=== PATIENT | male | born 1965 | race Caucasian/White ===

== ENCOUNTER 2018-11-12 09:12 | Emergency (ER) | payer MEDICAID ==
[2018-11-12 10:35] LABS: BILIRUBIN,URINE NEGATIVE (NEGATIVE); GLUCOSE, URINE (UA) NEGATIVE (NEGATIVE); KETONES,URINE (UA) TRACE mg/dL (NEGATIVE); LEUKOCYTE ESTERASE, URINE TRACE (NEGATIVE); NITRITE,URINE NEGATIVE (NEGATIVE); OCCULT BLOOD,URINE NEGATIVE (NEGATIVE); PH,URINE 5.5 PH (5.0-7.5); PROTEIN,URINE NEGATIVE (NEGATIVE); UROBILINOGEN,URINE 0.2 (NORMAL) E.U./dL (NORMAL)
[2018-11-12 10:58] LABS: CLARITY,URINE CLEAR (CLEAR)
[2018-11-12 11:01] LABS: BACTERIA,URINE Rare /HPF (None Seen); RBC,URINE None Seen /HPF (0-5); SQUAMOUS EPITHELIAL CELL,UR RARE Squamous (<= Few)
[2018-11-12 11:59] VITALS: BP 142/78
[2018-11-12] MEDS ORDERED: CIPROFLOXACIN 250 MG TABLET PO STA (11:59)
[2018-11-12] MEDS ORDERED: PHENAZOPYRIDINE 100 MG TABLET PO STA (11:59)
--- NOTE | 2018-11-12 12:05 | ED Physician Documentation ---
PD HPI FEMALE - Stated complaint Stated Complaint: MALE - Chief complaint Chief Complaint: Abd Pain - History obtained from History obtained from: Patient - History of Present Illness Timing - duration: Days (3) Timing - details: Still present Associated symptoms: Dysuria, Urinary frequency Similar symptoms before: Has not had sx before - Additional information Additional information: The patient is a 53-year-old male who presents with dysuria and urgency of urination. He reports mild symptoms intermittently over the past month, but worse during the past 3 days. He reports lower abdominal pain, radiating to his left thigh. He denies fever, nausea or vomiting, numbness or weakness. He has a history of sciatica, but reports that this is different from his sciatic pain. He denies history of similar symptoms in the past. Review of Systems Constitutional: denies: Fever Nose: denies: Congestion Throat: denies: Sore throat Cardiac: denies: Chest pain / pressure Respiratory: denies: Dyspnea, Cough GI: reports: Abdominal Pain. denies: Nausea, Vomiting, Diarrhea : reports: Dysuria, Unable to Void (Urgency) Skin: denies: Rash Musculoskeletal: denies: Back pain Neurologic: denies: Focal weakness, Numbness, Headache PD PAST MEDICAL HISTORY - Past Medical History Cardiovascular: None Respiratory: None Endocrine/Autoimmune: None GI: None : None HEENT: None Psych: None Musculoskeletal: Other (Sciatica) Derm: Other - Past Surgical History HEENT: Tonsil/Adenoidectomy - Present Medications Home Medications: Ambulatory Orders Medication Instructions Recorded Confirmed Ciprofloxacin HCl [Cipro] 500 mg PO BID #14 tablet 11/12/18 Phenazopyridine HCl [Pyridium] 200 mg PO TID PRN #6 tablet 11/12/18 - Allergies Allergies/Adverse Reactions: Allergies Allergy/AdvReac Type Severity Reaction Status Date / Time No Known Drug Allergies Allergy Verified 11/12/18 09:18 - Social History Does the pt smoke?: Yes Does the pt drink ETOH?: No Does the pt have substance abuse?: No PD ED PE NORMAL - Vitals Vital signs reviewed: Yes (Initially hypertensive.) - General General: Alert and oriented X 3, Well developed/nourished - HEENT HEENT: Atraumatic, Pharynx benign - Neck Neck: No adenopathy, No JVD - Cardiac Cardiac: RRR - Respiratory Respiratory: No respiratory distress, Clear bilaterally - Abdomen Abdomen: Normal bowel sounds, Soft, Non distended, Other (Mild suprapubic tenderness, more on the left than the right. No rebound or guarding.) - Back Back: No CVA TTP, No spinal TTP - Derm Derm: No rash - Extremities Extremities: No edema, No calf tenderness / cord - Neuro Neuro: Alert and oriented X 3, No motor deficit, No sensory deficit Results - Vitals Vitals: Oxygen O2 Source Room air - Labs Labs: Microbiology 11/12/18 10:20 Urine Culture - Final Urine,Random Less Than 10,000 COLONIES/ML UROGENITAL LEONARD Laboratory Tests 11/12/18 10:20 Urine Color DARK YELLOW Urine Clarity CLEAR Urine pH 5.5 Ur Specific [place] >=1.030 H Urine Protein NEGATIVE Urine Glucose (UA) NEGATIVE Urine Ketones TRACE Urine Occult Blood NEGATIVE Urine Nitrite NEGATIVE Urine Bilirubin NEGATIVE Urine Urobilinogen 0.2 (NORMAL) Ur Leukocyte Esterase TRACE H Urine RBC None Seen Urine WBC 6-10 H Ur Squamous Epith Cells RARE Squamous Urine Bacteria Rare Ur Microscopic Review INDICATED Urine Culture Comments INDICATED PD MEDICAL DECISION MAKING - ED course Complexity details: reviewed results, re-evaluated patient, considered differential, d/w patient ED course: The patient's presentation is most consistent with urinary tract infection. His presentation does not suggest sepsis or pyelonephritis. His urinalysis is positive for pyuria and bacteriuria. Culture and sensitivity is pending. Bladder scan reveals a post void residual of 80 mL urine. Treatment in the emergency department included administration of ciprofloxacin 500 mg orally, and Pyridium 200 mg orally. He is being discharged with prescriptions for both. I discussed with him the expected course of illness, antibiotic treatment and outpatient follow-up, as well as potentially worrisome signs or symptoms that should prompt reevaluation in the emergency department. Departure - Departure Disposition: 01 Home, Self Care Clinical Impression: Urinary tract infection Qualifiers: Urinary tract infection type: acute cystitis Hematuria presence: without hematuria Qualified Code(s): N30.00 - Acute cystitis without hematuria Instructions: ED UTI Cystitis Male Follow-Up: [facility] [Provider Group] Prescriptions: Ciprofloxacin HCl [Cipro] 500 mg PO BID #14 tablet Phenazopyridine HCl [Pyridium] 200 mg PO TID PRN #6 tablet PRN Reason: dysuria Comments: Drink plenty of fluids, including cranberry juice. Take Cipro twice daily as prescribed. You can use Pyridium as prescribed if needed for painful urination. Follow-up with your primary physician within 1-2 weeks. Call to schedule an appointment. Return to the emergency department if you develop increasing pain, fever with shaking chills, persistent vomiting, or otherwise worsening symptoms. Discharge Date/Time: 11/12/18 12:14
== END 2018-11-12 12:14 | disposition home or self-care (01) ==
LOC: ED 09:12
DX: N30.00 Acute cystitis without hematuria (principal); R33.9 Retention of urine, unspecified
CPT/HCPCS: 51798; 81001; 87086; 99283; A9270; 81003

== ENCOUNTER 2018-11-23 08:52 | Outpatient (CLI) | payer MEDICAID ==
[2018-11-23 09:12] LABS: BASOPHILS # (AUTO) 0.1 10^3/uL (0.0-0.1); BASOPHILS % (AUTO) 0.7 %; EOSINOPHILS # (AUTO) 0.1 10^3/uL (0.0-0.7); EOSINOPHILS % (AUTO) 0.7 %; HGB - HEMOGLOBIN 15.3 g/dL (14.0-18.0); LYMPHOCYTES # (AUTO) 1.5 10^3/uL (1.5-3.5); MEAN CORPUSCULAR HGB CONC 34.9 g/dL (32.0-36.0); MEAN CORPUSCULAR VOLUME 91.8 fL (80.0-94.0); MEAN PLATELET VOLUME 7.7 fL (7.4-11.4); MONOCYTES # (AUTO) 0.8 10^3/uL (0.0-1.0); MONOCYTES % (AUTO) 8.4 %; NEUTROPHILS # (AUTO) 6.9 10^3/uL (1.5-6.6); NEUTROPHILS % (AUTO) 74.2 %; PLT - PLATELET COUNT 319 10^3/uL (130-450); RED BLOOD COUNT 4.77 10^6/uL (4.70-6.10); RED CELL DISTRIBUTION WIDTH 13.1 % (12.0-15.0); WHITE BLOOD COUNT 9.3 x10^3/uL (4.8-10.8)
[2018-11-23 09:23] LABS: ALBUMIN 3.7 g/dL (3.2-5.5); ALBUMIN/GLOBULIN RATIO 0.8 (1.0-2.2); BILIRUBIN,TOTAL 1.1 mg/dL (0.2-1.0); CALCIUM 9.2 mg/dL (8.5-10.3); CREATININE 0.6 mg/dL (0.6-1.2); TOTAL PROTEIN 8.1 g/dL (6.7-8.2)
[2018-11-23 09:54] LABS: PSA FREE 0.923 ng/mL (0.16-2.81)
[2018-11-23 09:55] LABS: PSA TOTAL 8.286 ng/mL (0.000-2.000)
== END 2018-11-23 08:53 | disposition home or self-care (01) ==
LOC: LAB 08:52
PROVIDERS: ATTEND Physician Assistant Medical
DX: N40.0 Benign prostatic hyperplasia without lower urinary tract symptoms (principal); R35.0 Frequency of micturition; N42.89 Other specified disorders of prostate; R35.1 Nocturia
CPT/HCPCS: 36415; 80053; 84153; 84154; 85025

== ENCOUNTER 2018-11-23 23:49 | Emergency (ER) | payer MEDICAID ==
[2018-11-24 00:18] LABS: BILIRUBIN,URINE NEGATIVE (NEGATIVE); GLUCOSE, URINE (UA) NEGATIVE (NEGATIVE); KETONES,URINE (UA) NEGATIVE (NEGATIVE); LEUKOCYTE ESTERASE, URINE NEGATIVE (NEGATIVE); NITRITE,URINE NEGATIVE (NEGATIVE); OCCULT BLOOD,URINE NEGATIVE (NEGATIVE); PROTEIN,URINE NEGATIVE (NEGATIVE); UROBILINOGEN,URINE 0.2 (NORMAL) E.U./dL (NORMAL)
[2018-11-24 00:22] LABS: CLARITY,URINE CLEAR (CLEAR)
[2018-11-24] MEDS ORDERED: HYDROcod/ACETAM 5/325 MG TABLET PO STA (00:22)
[2018-11-24] MEDS ORDERED: KETOROLAC 60 MG/2 ML VIAL IM STA (00:23)
[2018-11-24] MEDS ORDERED: TAMSULOSIN 0.4 MG CAPSULE PO STA (00:33)
--- NOTE | 2018-11-24 00:35 | ED Physician Documentation ---
PD HPI MALE - Stated complaint Stated Complaint: UNABLE TO VOID - Chief complaint Chief Complaint: Abd Pain - History obtained from History obtained from: Patient - History of Present Illness Timing - onset: How many hours ago (12) Timing - duration: Hours (12) Timing - details: Gradual onset Pain level max: 7 Pain level now: 7 Severity Comments: Severe Associated symptoms: Unable to urinate PD HPI MALE CONTRIB FACTORS: Not sexually active, Other (Elevated PSA) Review of Systems Ten Systems: 10 systems reviewed and negative Constitutional: reports: Reviewed and negative Eyes: reports: Reviewed and negative Ears: reports: Reviewed and negative Nose: reports: Reviewed and negative Throat: reports: Reviewed and negative Cardiac: reports: Reviewed and negative Respiratory: reports: Reviewed and negative GI: reports: Reviewed and negative : reports: Other (Urinary retention) Skin: reports: Reviewed and negative Musculoskeletal: reports: Reviewed and negative Neurologic: reports: Reviewed and negative Psychiatric: reports: Reviewed and negative Endocrine: reports: Reviewed and negative Immunocompromised: reports: Reviewed and negative PD PAST MEDICAL HISTORY - Past Medical History Cardiovascular: None Respiratory: None Endocrine/Autoimmune: None GI: None : None HEENT: None Psych: None Musculoskeletal: Other (Sciatica) Derm: Other - Past Surgical History HEENT: Tonsil/Adenoidectomy - Present Medications Home Medications: Ambulatory Orders Medication Instructions Recorded Confirmed Tamsulosin HCl [Flomax] 0.4 mg PO DAILY #30 cap.er.24h 11/24/18 - Allergies Allergies/Adverse Reactions: Allergies Allergy/AdvReac Type Severity Reaction Status Date / Time No Known Drug Allergies Allergy Verified 11/23/18 23:54 - Social History Does the pt smoke?: Yes Does the pt drink ETOH?: No Does the pt have substance abuse?: No PD ED PE NORMAL - Vitals Vital signs reviewed: Yes - General General: Alert and oriented X 3, No acute distress - HEENT HEENT: PERRL - Neck Neck: Supple, no meningeal sign - Cardiac Cardiac: RRR, No murmur - Respiratory Respiratory: Clear bilaterally - Abdomen Abdomen: Normal bowel sounds, Soft, Non tender, Non distended - Derm Derm: Warm and dry - Extremities Extremities: No deformity - Neuro Neuro: Alert and oriented X 3 - Psych Psych: Normal mood, Normal affect Results - Vitals Vitals: Vital Signs - 24 hr 02/26/19 02/27/19 23:51 01:01 Temperature 36.2 C L 36.5 C Heart Rate 114 H 88 Respiratory 18 18 Rate Blood Pressure 136/83 H 135/94 H O2 Saturation 98 99 Oxygen O2 Source Room air - Labs Labs: Laboratory Tests 11/24/18 00:07 Urine Color YELLOW Urine Clarity CLEAR Urine pH 6.0 Ur Specific [place] <=1.005 Urine Protein NEGATIVE Urine Glucose (UA) NEGATIVE Urine Ketones NEGATIVE Urine Occult Blood NEGATIVE Urine Nitrite NEGATIVE Urine Bilirubin NEGATIVE Urine Urobilinogen 0.2 (NORMAL) Ur Leukocyte Esterase NEGATIVE Ur Microscopic Review NOT INDICATED Urine Culture Comments NOT INDICATED PD MEDICAL DECISION MAKING - ED course Complexity details: reviewed results, re-evaluated patient, considered differential, d/w patient, d/w family ED course: 53-year-old male with history of BPH and elevated PSA H presents with urinary retention. Bedside ultrasound revealed over 900 cc of urine in the bladder. A coud Doev was placed and patient was discharged with leg bag and a prescription for Flomax.No evidence of urinary tract infection on urinalysis. Departure - Departure Disposition: 01 Home, Self Care Clinical Impression: Urinary retention Instructions: ED Catheter Care Dove, ED Retention Urinary Male Follow-Up: Your, PCP [Other] Prescriptions: Tamsulosin HCl [Flomax] 0.4 mg PO DAILY #30 cap.er.24h Comments: Follow-up with PCP within 24 hours regarding urinary tension. Take Flomax daily. You may take 1000 mg Tylenol and 800 mg ibuprofen up to 3 times daily as needed for pain. Discharge Date/Time: 11/24/18 01:46
[2018-11-24 01:02] VITALS: BP 135/94
== END 2018-11-24 01:46 | disposition home or self-care (01) ==
LOC: ED 23:49
DX: N40.1 Benign prostatic hyperplasia with lower urinary tract symptoms (principal); R33.8 Other retention of urine; R35.0 Frequency of micturition; R35.1 Nocturia; N42.89 Other specified disorders of prostate
CPT/HCPCS: 36415; 51702; 51798; 80053; 81003; 84153; 84154; 85025; 96372; 99283; A9270; 81001; 87086

== ENCOUNTER 2018-11-24 05:03 | Emergency (ER) | payer MEDICAID ==
[2018-11-24] MEDS ORDERED: LIDOCAINE 2% URO-JET 5 ML SYRINGE UR STA (05:05)
[2018-11-24] MEDS ORDERED: HYDROcod/ACETAM 5/325 MG TABLET PO STA (05:29)
--- NOTE | 2018-11-24 05:33 | ED Physician Documentation ---
PD HPI MALE - Stated complaint Stated Complaint: CATHETER ISSUE - History obtained from History obtained from: Patient - History of Present Illness Timing - onset: How many hours ago (1) Timing - duration: Hours (1) Timing - details: Abrupt onset Pain level max: 3 Pain level now: 3 Severity Comments: mild Associated symptoms: Julian problem PD HPI MALE CONTRIB FACTORS: Not sexually active - Additional information Additional information: Patient woke up and julian was not draining Review of Systems Ten Systems: 10 systems reviewed and negative Constitutional: reports: Reviewed and negative Eyes: reports: Reviewed and negative Ears: reports: Reviewed and negative Nose: reports: Reviewed and negative Throat: reports: Reviewed and negative Cardiac: reports: Reviewed and negative Respiratory: reports: Reviewed and negative GI: reports: Reviewed and negative : reports: Reviewed and negative Skin: reports: Reviewed and negative Musculoskeletal: reports: Reviewed and negative Neurologic: reports: Reviewed and negative Psychiatric: reports: Reviewed and negative Endocrine: reports: Reviewed and negative Immunocompromised: reports: Reviewed and negative PD PAST MEDICAL HISTORY - Past Medical History Cardiovascular: None Respiratory: None Endocrine/Autoimmune: None GI: None : None HEENT: None Psych: None Musculoskeletal: Other (Sciatica) Derm: Other - Past Surgical History HEENT: Tonsil/Adenoidectomy - Present Medications Home Medications: Ambulatory Orders Medication Instructions Recorded Confirmed Tamsulosin HCl [Flomax] 0.4 mg PO DAILY #30 cap.er.24h 11/24/18 - Allergies Allergies/Adverse Reactions: Allergies Allergy/AdvReac Type Severity Reaction Status Date / Time No Known Drug Allergies Allergy Verified 11/23/18 23:54 - Living Situation Living Situation: reports: With spouse/s.o. Living Arrangement: reports: At home - Social History Does the pt smoke?: Yes Does the pt drink ETOH?: No Does the pt have substance abuse?: No - Family History Family history: reports: Other (Reviewed and not pertinent) PD ED PE NORMAL - Vitals Vital signs reviewed: Yes - General General: Alert and oriented X 3, No acute distress - HEENT HEENT: PERRL - Neck Neck: Supple, no meningeal sign - Cardiac Cardiac: RRR, No murmur - Respiratory Respiratory: Clear bilaterally - Abdomen Abdomen: Normal bowel sounds, Soft, Non tender, Non distended - Derm Derm: Warm and dry - Extremities Extremities: No deformity - Neuro Neuro: Alert and oriented X 3 - Psych Psych: Normal mood, Normal affect Results - Vitals Vitals: Oxygen O2 Source Room air PD MEDICAL DECISION MAKING - ED course Complexity details: re-evaluated patient, considered differential, d/w patient, d/w family ED course: 53-year-old male with Julian problem. Julian was replaced and draining well. Departure - Departure Disposition: 01 Home, Self Care Clinical Impression: Julian catheter problem Qualifiers: Encounter type: initial encounter Qualified Code(s): T83.9XXA - Unspecified complication of genitourinary prosthetic device, implant and graft, initial encounter Condition: Stable Instructions: Catheter Bag Urinary Empty Clean, Catheter Indwelling Urinary Dc, Leg Bag Care Dc, ED Catheter Care Julian Follow-Up: Your, pcp [Other]
[2018-11-24 06:17] VITALS: BP 139/76
== END 2018-11-24 05:50 | disposition home or self-care (01) ==
LOC: ED 05:03
DX: T83.091A Other mechanical complication of indwelling urethral catheter, initial encounter (principal)
CPT/HCPCS: 51702; 99283; A9270

== ENCOUNTER 2018-12-30 17:42 | Outpatient (CLI) | payer MEDICAID ==
[2018-12-30 19:03] LABS: PSA FREE 0.61 ng/mL (0.16-2.81); PSA TOTAL 6.48 ng/mL (0.000-2.000)
--- NOTE | 2018-12-30 19:36 | MRI Report ---
Reason: URINARY RETENTION,LUMBAR RADICULOPATHY Procedure Date: 12/30/2018 Accession Number: [id number] / [id number] Procedure: MRI - Lumbar Spine W/O CPT Code: FULL RESULT: EXAM: MRI LUMBAR SPINE WITHOUT CONTRAST EXAM DATE: 12/30/2018 07:00 PM. CLINICAL HISTORY: Urinary retention, lumbar radiculopathy. COMPARISON: None. TECHNIQUE: Multiplanar, multisequence T1-weighted and fluid-sensitive sequences of the lumbar spine from T11 to S1 without contrast. Other: None. FINDINGS: Spinal Canal: The conus terminates at L1. The conus medullaris and cauda equina are unremarkable. Alignment: Retrolisthesis at L3-L4 and L4-L5 measure 1-2 mm. Bone Marrow: Five [id number] lumbar vertebral bodies are assumed. No gross fractures or bone lesions. No bone marrow replacement. Disk Levels/Facets: T11-T12: On sagittal images, the spinal canal and foramina are patent. T12-L1: Unremarkable. L1-L2: A tiny central protrusion and annular fissure present without spinal canal or foraminal stenosis. L2-L3: There is mild bilateral foraminal narrowing due to foraminal protrusions. The spinal canal is patent. L3-L4: There is mild left foraminal narrowing due to a foraminal protrusion. The spinal canal and right foramen are patent. L4-L5: A central protrusion results in mild spinal canal stenosis. The foramina are patent. L5-S1: Unremarkable. Musculature: Normal. No edema or fatty atrophy. Other: The partially visualized retroperitoneum is unremarkable. IMPRESSION: 1. Normal conus medullaris and cauda equina. 2. Mild degenerative changes are noted in the lumbar spine but no high-grade spinal or foraminal stenosis is seen. Comment: The following findings are so common in adults without low back pain that while we report their presence, they must be interpreted with caution and in the context of the clinical situation. (Reference Jaydenk et al, Spine 2001) Prevalence of findings in patients without low back pain: Disk degeneration (any evidence): 92% Disk desiccation/T2 signal loss: 83% Disk height loss: 56% Disk bulge: 64% Disk protrusion: 32% Annular tear/high intensity zone: 38% RADIA
== END 2018-12-30 17:43 | disposition home or self-care (01) ==
LOC: DI 17:42
PROVIDERS: ATTEND Family Medicine
DX: M51.26 Other intervertebral disc displacement, lumbar region (principal); M47.9 Spondylosis, unspecified; R97.20 Elevated prostate specific antigen [PSA]; R33.9 Retention of urine, unspecified
CPT/HCPCS: 36415; 72148; 84153; 84154

== ENCOUNTER 2019-02-24 13:41 | Outpatient (CLI) | payer MEDICAID | END 2019-02-24 13:42 | disposition home or self-care (01) | LOC: DI 13:41 | PROVIDERS: ATTEND Internal Medicine Medical Oncology | DX: Z01.818 Encounter for other preprocedural examination (principal); C49.9 Malignant neoplasm of connective and soft tissue, unspecified ==

== ENCOUNTER 2019-03-11 14:42 | Outpatient (CLI) | payer MEDICAID ==
[2019-03-11 15:18] LABS: EOSINOPHILS % (AUTO) 1.3 %; HGB - HEMOGLOBIN 11.2 g/dL (14.0-18.0); LYMPHOCYTES # (AUTO) 0.8 10^3/uL (1.5-3.5); LYMPHOCYTES % (AUTO) 44.7 %; MEAN CORPUSCULAR HEMOGLOBIN 28.6 pg (27.0-31.0); MEAN CORPUSCULAR HGB CONC 33.3 g/dL (32.0-36.0); MEAN PLATELET VOLUME 8.2 fL (7.4-11.4); MONOCYTES # (AUTO) 0.1 10^3/uL (0.0-1.0); MONOCYTES % (AUTO) 8.2 %; NEUTROPHILS # (AUTO) 0.8 10^3/uL (1.5-6.6); NEUTROPHILS % (AUTO) 44.8 %; PLT - PLATELET COUNT 242 10^3/uL (130-450); RED BLOOD COUNT 3.91 10^6/uL (4.70-6.10); RED CELL DISTRIBUTION WIDTH 13.6 % (12.0-15.0)
[2019-03-11 15:26] LABS: ALBUMIN 3.5 g/dL (3.2-5.5); ALBUMIN/GLOBULIN RATIO 0.7 (1.0-2.2); BILIRUBIN,TOTAL 2.8 mg/dL (0.2-1.0); CALCIUM 9.8 mg/dL (8.5-10.3); CREATININE 0.6 mg/dL (0.6-1.2); TOTAL PROTEIN 8.2 g/dL (6.7-8.2)
[2019-03-11 15:42] LABS: WHITE BLOOD COUNT 1.8 x10^3/uL (4.8-10.8)
[2019-03-11 16:25] LABS: PLATELET ESTIMATE, MANUAL NORMAL (130-450,000) (NORMAL); PLATELET MORPHOLOGY NORMAL APPEARANCE (NORMAL); RBC MORPHOLOGY (MULTIPLE) NORMAL APPEARANCE (NORMAL)
== END 2019-03-11 14:43 | disposition home or self-care (01) ==
LOC: LAB 14:42
PROVIDERS: ATTEND Dietitian, Registered
DX: C49.5 Malignant neoplasm of connective and soft tissue of pelvis (principal)
CPT/HCPCS: 36415; 80053; 85025

== ENCOUNTER 2019-03-28 12:08 | Outpatient (CLI) | payer MEDICAID | END 2019-03-28 12:09 | disposition critical access hospital (66) | LOC: EMS 12:08 | PROVIDERS: ATTEND Surgery | DX: R53.1 Weakness (principal); R55 Syncope and collapse; R68.89 Other general symptoms and signs | CPT/HCPCS: A0425; A0429; A0999 ==

== ENCOUNTER 2019-03-28 12:14 | Emergency (ER) | payer MEDICAID ==
[2019-03-28] MEDS ORDERED: HYDROmorphone 1 MG/ML CARPUJECT IVP STA (13:09)
[2019-03-28] MEDS ORDERED: SODIUM CHLORIDE 0.9% 1,000 ML IV ONE ×3 (13:10→18:08)
[2019-03-28] MEDS ORDERED: ONDANSETRON 4 MG/2 ML VIAL IVP STA (13:38)
[2019-03-28 13:42] LABS: GLUCOSE, URINE (UA) 100 mg/dL (NEGATIVE); KETONES,URINE (UA) 15 mg/dL (NEGATIVE); LEUKOCYTE ESTERASE, URINE TRACE (NEGATIVE); NITRITE,URINE NEGATIVE (NEGATIVE); OCCULT BLOOD,URINE LARGE (NEGATIVE); PH,URINE 8.5 PH (5.0-7.5); PROTEIN,URINE 100 mg/dL (NEGATIVE); UROBILINOGEN,URINE 4 E.U./dL (NORMAL)
[2019-03-28 13:44] LABS: BILIRUBIN,URINE LARGE (NEGATIVE); CLARITY,URINE CLEAR (CLEAR); ICTOTEST,URINE POSITIVE
--- NOTE | 2019-03-28 13:50 | ED Physician Documentation ---
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 According to the is estimated prognosis is up to 12 months. He had vomiting and weakness today. His colostomy bag also fell off and they did not have a replacement at home. Has not had any fevers. Has had a high bilirubin for several weeks. She is concerned that he is becoming dehydrated. Nothing makes this better or worse. She had trouble standing him up today. He did not take his pain medications this morning. He did vomit x1. Review of Systems Ten Systems: 10 systems reviewed and negative Constitutional: denies: Fever, Chills Ears: denies: Ear pain Nose: denies: Rhinorrhea / runny nose, Congestion Cardiac: denies: Chest pain / pressure Respiratory: denies: Dyspnea, Cough : denies: Dysuria Skin: denies: Rash Musculoskeletal: denies: Neck pain, Back pain Neurologic: reports: Generalized weakness. denies: Headache PD PAST MEDICAL HISTORY - Past Medical History Cardiovascular: None Respiratory: None Endocrine/Autoimmune: None GI: None : None HEENT: None Psych: None Musculoskeletal: Other Derm: Other - Past Surgical History Past Surgical History: Yes HEENT: Tonsil/Adenoidectomy - Present Medications Home Medications: Ambulatory Orders Medication Instructions Recorded Confirmed Tamsulosin HCl [Flomax] 0.4 mg PO DAILY #30 cap.er.24h 11/24/18 Gabapentin 03/28/19 Morphine Ir [Ms Ir] 15 mg PO 03/28/19 Morphine Sulfate 30 mg PO 03/28/19 Oxycodone HCl [Roxicodone] 03/28/19 - Allergies Allergies/Adverse Reactions: Allergies Allergy/AdvReac Type Severity Reaction Status Date / Time No Known Drug Allergies Allergy Verified 03/28/19 12:25 - Social History Does the pt smoke?: Yes Smoking Status: Current some day smoker Does the pt drink ETOH?: No Does the pt have substance abuse?: No PD ED PE NORMAL - Vitals Vital signs reviewed: Yes - General General: Alert and oriented X 3, No acute distress, Other (Cachectic male, jaundiced) - HEENT HEENT: PERRL, Moist mucous membranes - Neck Neck: Supple, no meningeal sign - Cardiac Cardiac: RRR - Respiratory Respiratory: No respiratory distress, Clear bilaterally - Abdomen Abdomen: Other (Mild diffuse tenderness. No peritoneal signs. Ostomy bag in the left side of the abdomen. No signs of infection) - Back Back: No spinal TTP - Derm Derm: Warm and dry - Extremities Extremities: No edema - Neuro Neuro: Alert and oriented X 3 Results - Vitals Vitals: Vital Signs - 24 hr 03/28/19 03/28/19 03/28/19 12:21 17:38 18:17 Temperature 36.9 C Heart Rate 97 90 98 Respiratory 14 14 14 Rate Blood Pressure 113/74 121/80 128/87 H O2 Saturation 100 97 97 03/28/19 03/28/19 20:24 21:43 Temperature 36.5 C Heart Rate 92 95 Respiratory 14 18 Rate Blood Pressure 112/79 120/84 H O2 Saturation 96 97 Oxygen O2 Source Room air - Labs Labs: Laboratory Tests 03/28/19 03/28/19 03/28/19 13:23 13:49 13:49 WBC 9.2 RBC 3.43 L Hgb 9.7 L Hct 30.0 L MCV 87.5 MCH 28.3 MCHC 32.3 RDW 15.2 H Plt Count 368 MPV 10.4 Neut # (Auto) 8.6 H Lymph # (Auto) 0.5 L [place] # (Auto) 0.1 Eos # (Auto) 0.0 Baso # (Auto) 0.0 Absolute Nucleated RBC 0.00 Nucleated RBC % 0.0 Sodium 138 Potassium 2.9 L Chloride 93 L Carbon Dioxide 29 Anion Gap 16.0 H BUN 12 Creatinine 0.3 L Estimated GFR (MDRD) 311 Glucose 133 H Calcium 8.9 Total Bilirubin 12.1 H AST 303 H ALT 172 H Alkaline Phosphatase 953 H Total Protein 6.7 Albumin 2.5 L Globulin 4.2 Albumin/Globulin Ratio 0.6 L Lipase 23 Urine Color BROWN Urine Clarity CLEAR Urine pH 8.5 H Ur Specific [place] 1.010 Urine Protein 100 H Urine Glucose (UA) 100 H Urine Ketones 15 H Urine Occult Blood LARGE H Urine Nitrite NEGATIVE Urine Bilirubin LARGE H Urine Urobilinogen 4 H Ur Leukocyte Esterase TRACE H Urine RBC TNTC H Urine WBC 0-3 Ur Squamous Epith Cells NONE SEEN Urine Bacteria None Seen Urine Mucus Moderate Strands Ur Microscopic Review INDICATED Urine Culture Comments INDICATED - Rads (name of study) cxr Radiology: Prelim report reviewed, EMP read contemporaneously, See rad report (Right-sided Port-A-Cath with tip at mid to lower SVC. 2. Diffuse hematogenous pulmonary metastases. ) CT abd/pelvis Radiology: Prelim report reviewed, EMP read contemporaneously, See rad report (Innumerable hematogenous pulmonary metastases. 2. Large 171 mm pelvic mass consistent with the diagnosis of sarcoma. 3. 16 mm pancreatic head mass causing obstruction of the common bile duct. 4. Small nonocclusive thrombus in the superior aspect of the superior mesenteric vein. 5. Mild hydronephrosis of left kidney. Probably secondary to extrinsic compression of distal left ureter by mass. 6. Comparison with previous imaging would be useful to evaluate stability versus progression of malignancy. ) PD MEDICAL DECISION MAKING - ED course Complexity details: reviewed results, re-evaluated patient, considered differential, d/w patient, d/w family, d/w inside sales consultant ED course: 1540 - Dr. Conti ([facility]) and recommends CT abd/pelvis and if stentable, ERCP for stent placement. If not, then recommends hospice. Contacted [facility] after CT scan, no beds available. Contacted [place] in [place], no beds available. Contacted GI at [facility] in [place], they state that they are interventional GI physician is not on for the next few days. Contacted the [facility] spoke with Dr. Laughlin from GI at 2030 and he recommends transfer for further care. Zeferino from the transfer center will page the oncology service to see if they will accept the patient. 2114 - Dr. Fowler (oncology) graciously accepts in transfer. COBRA forms completed. This document was made in part using voice recognition software. While efforts are made to proofread this document, sound alike and grammatical errors may occur. Departure - Departure Disposition: 02 Transfer Acute Care Hosp Clinical Impression: Bile duct obstruction, Pancreatic mass, Metastatic sarcoma Condition: Stable
[2019-03-28 13:59] LABS: BASOPHILS % (AUTO) 0.2 %; HGB - HEMOGLOBIN 9.7 g/dL (14.0-18.0); LYMPHOCYTES # (AUTO) 0.5 10^3/uL (1.5-3.5); LYMPHOCYTES % (AUTO) 5.4 %; MEAN CORPUSCULAR HEMOGLOBIN 28.3 pg (27.0-31.0); MEAN CORPUSCULAR HGB CONC 32.3 g/dL (32.0-36.0); MEAN CORPUSCULAR VOLUME 87.5 fL (80.0-94.0); MEAN PLATELET VOLUME 10.4 fL (7.4-11.4); MONOCYTES # (AUTO) 0.1 10^3/uL (0.0-1.0); MONOCYTES % (AUTO) 0.5 %; NEUTROPHILS # (AUTO) 8.6 10^3/uL (1.5-6.6); NEUTROPHILS % (AUTO) 93.4 %; PLT - PLATELET COUNT 368 10^3/uL (130-450); RED BLOOD COUNT 3.43 10^6/uL (4.70-6.10); RED CELL DISTRIBUTION WIDTH 15.2 % (12.0-15.0); WHITE BLOOD COUNT 9.2 x10^3/uL (4.8-10.8)
[2019-03-28 14:01] LABS: BACTERIA,URINE None Seen /HPF (None Seen); MUCUS,URINE Moderate Strands; RBC,URINE TNTC /HPF (0-5); SQUAMOUS EPITHELIAL CELL,UR NONE SEEN (<= Few)
[2019-03-28 14:15] LABS: ALBUMIN 2.5 g/dL (3.2-5.5); ALBUMIN/GLOBULIN RATIO 0.6 (1.0-2.2); BILIRUBIN,TOTAL 12.1 mg/dL (0.2-1.0); CALCIUM 8.9 mg/dL (8.5-10.3); CREATININE 0.3 mg/dL (0.6-1.2); TOTAL PROTEIN 6.7 g/dL (6.7-8.2)
[2019-03-28] MEDS ORDERED: IOVERSOL 320 100 ML VIAL IVP ONE ×2 (15:46→16:45)
--- NOTE | 2019-03-28 17:02 | CT Report ---
Reason: jaundice, vomiting, sarcoma Procedure Date: 03/28/2019 Accession Number: [id number] / [id number] Procedure: CT - Abdomen/Pelvis W CPT Code: FULL RESULT: EXAM: CT ABDOMEN AND PELVIS EXAM DATE: 03/28/2019 04:43 PM. CLINICAL HISTORY: Jaundice, vomiting, sarcoma. COMPARISONS: No prior imaging available for comparison.. TECHNIQUE: Routine helical CT imaging was performed through the abdomen and pelvis. IV contrast: OPTI 320 100ML. Enteric contrast: No. Reconstructions: Coronal and sagittal. In accordance with CT protocol optimization, one or more of the following dose reduction techniques were utilized for this exam: automated exposure control, adjustment of mA and/or KV based on patient size, or use of iterative reconstructive technique. FINDINGS: Lung Bases: There are innumerable well-circumscribed pulmonary nodules with a random distribution consistent with hematogenous pulmonary metastases. Largest lesions measure up to 20 mm in diameter. No pleural effusion. Liver: There is mild to moderate intrahepatic biliary dilation. The common bile duct is dilated. There is irregular contour with narrowing of the mid common bile duct at the level of the pancreatic head. Gallbladder/Bile Ducts: Gallbladder is mildly distended. Spleen: Normal. Pancreas: There is a 16 mm hypodense lesion in the pancreatic head on series 3 image 30. Adrenal Glands: Normal. Kidneys: There is mild hydronephrosis of the left kidney. The mid to distal left ureter is not well seen secondary to a large pelvic mass. No hydronephrosis of right kidney. Peritoneal Cavity/Bowel: No significant bowel dilation. There is a small volume of intraperitoneal free fluid. There is linear enhancement of the omental surface. There is an ostomy in the left mid abdomen. No hematoma. Pelvic Organs: There is a large complex and heterogeneously enhancing mass in the pelvis. This mass measures 134 x 104 x 171 mm. Urinary bladder is empty. Vasculature: There is a round hypodense structure within the upper superior mesenteric vein measuring 8 mm consistent with a small nonocclusive thrombus. No other intravascular filling defect. Bones: No significant abnormality. Other: None. IMPRESSION: 1. Innumerable hematogenous pulmonary metastases. 2. Large 171 mm pelvic mass consistent with the diagnosis of sarcoma. 3. 16 mm pancreatic head mass causing obstruction of the common bile duct. 4. Small nonocclusive thrombus in the superior aspect of the superior mesenteric vein. 5. Mild hydronephrosis of left kidney. Probably secondary to extrinsic compression of distal left ureter by mass. 6. Comparison with previous imaging would be useful to evaluate stability versus progression of malignancy. RADIA
--- NOTE | 2019-03-28 17:04 | XRAY Report ---
Reason: requested by forklift technician for type of port Procedure Date: 03/28/2019 Accession Number: [id number] / [id number] Procedure: XR - Chest 1 View X-Ray CPT Code: 72796 FULL RESULT: EXAM: CHEST RADIOGRAPHY EXAM DATE: 03/28/2019 04:44 PM. CLINICAL HISTORY: Requested by forklift technician for type of port. COMPARISON: None. TECHNIQUE: 1 view. FINDINGS: Lungs/Pleura: There are innumerable randomly distributed circumscribed round pulmonary nodules consistent with hematogenous metastases. Mediastinum: Within exam limitations, the cardiomediastinal contour is normal. Other: There is a right sided Port-A-Cath with tip at the mid to lower SVC. IMPRESSION: 1. Right-sided Port-A-Cath with tip at mid to lower SVC. 2. Diffuse hematogenous pulmonary metastases. RADIA
[2019-03-28 23:18] VITALS: BP 119/85
== END 2019-03-29 00:36 | disposition short-term general hospital (02) ==
LOC: EDUNIT# → ED 12:14
DX: K83.1 Obstruction of bile duct (principal); K86.9 Disease of pancreas, unspecified; C76.3 Malignant neoplasm of pelvis; C78.00 Secondary malignant neoplasm of unspecified lung; F17.200 Nicotine dependence, unspecified, uncomplicated; Z93.3 Colostomy status; Z79.899 Other long term (current) drug therapy
CPT/HCPCS: 36415; 71045; 74177; 80053; 81001; 83690; 85025; 87077; 87086; 87181; 96361; 96374; 99284; 99285; Q9967; 81003

== ENCOUNTER 2019-04-04 15:08 | Outpatient (CLI) | payer MEDICAID ==
[2019-04-04 15:31] LABS: ALBUMIN 2.8 g/dL (3.2-5.5); ALBUMIN/GLOBULIN RATIO 0.7 (1.0-2.2); BASOPHILS % (AUTO) 0.1 %; BILIRUBIN,TOTAL 5.6 mg/dL (0.2-1.0); CREATININE 0.6 mg/dL (0.6-1.2); EOSINOPHILS % (AUTO) 0.3 %; HGB - HEMOGLOBIN 9.4 g/dL (14.0-18.0); LYMPHOCYTES # (AUTO) 1.3 10^3/uL (1.5-3.5); LYMPHOCYTES % (AUTO) 15.4 %; MEAN CORPUSCULAR HEMOGLOBIN 27.8 pg (27.0-31.0); MEAN CORPUSCULAR HGB CONC 30.3 g/dL (32.0-36.0); MEAN CORPUSCULAR VOLUME 91.7 fL (80.0-94.0); MEAN PLATELET VOLUME 10.2 fL (7.4-11.4); MONOCYTES # (AUTO) 0.8 10^3/uL (0.0-1.0); MONOCYTES % (AUTO) 9.6 %; NEUTROPHILS # (AUTO) 6.5 10^3/uL (1.5-6.6); NEUTROPHILS % (AUTO) 74.3 %; PLT - PLATELET COUNT 281 10^3/uL (130-450); RED BLOOD COUNT 3.38 10^6/uL (4.70-6.10); RED CELL DISTRIBUTION WIDTH 15.2 % (12.0-15.0); TOTAL PROTEIN 6.9 g/dL (6.7-8.2); WHITE BLOOD COUNT 8.7 x10^3/uL (4.8-10.8)
== END 2019-04-04 15:09 | disposition home or self-care (01) ==
LOC: LAB 15:08
PROVIDERS: ATTEND Internal Medicine Medical Oncology
DX: C49.9 Malignant neoplasm of connective and soft tissue, unspecified (principal)
CPT/HCPCS: 36415; 80053; 85025

== ENCOUNTER 2019-04-13 09:47 | Outpatient (CLI) | payer MEDICAID ==
[2019-04-13 10:15] LABS: BASOPHILS # (AUTO) 0.1 10^3/uL (0.0-0.1); BASOPHILS % (AUTO) 0.5 %; EOSINOPHILS # (AUTO) 0.1 10^3/uL (0.0-0.7); EOSINOPHILS % (AUTO) 0.7 %; LYMPHOCYTES # (AUTO) 1.6 10^3/uL (1.5-3.5); LYMPHOCYTES % (AUTO) 10.2 %; MEAN CORPUSCULAR HEMOGLOBIN 29.3 pg (27.0-31.0); MEAN CORPUSCULAR HGB CONC 32.4 g/dL (32.0-36.0); MEAN CORPUSCULAR VOLUME 90.6 fL (80.0-94.0); MEAN PLATELET VOLUME 10.3 fL (7.4-11.4); MONOCYTES # (AUTO) 1.2 10^3/uL (0.0-1.0); MONOCYTES % (AUTO) 7.8 %; NEUTROPHILS # (AUTO) 12.2 10^3/uL (1.5-6.6); NEUTROPHILS % (AUTO) 80.1 %; PLT - PLATELET COUNT 498 10^3/uL (130-450); RED BLOOD COUNT 3.41 10^6/uL (4.70-6.10); RED CELL DISTRIBUTION WIDTH 17.2 % (12.0-15.0); WHITE BLOOD COUNT 15.3 x10^3/uL (4.8-10.8)
[2019-04-13 10:27] LABS: ALBUMIN 3.1 g/dL (3.2-5.5); ALBUMIN/GLOBULIN RATIO 0.6 (1.0-2.2); BILIRUBIN,TOTAL 3.5 mg/dL (0.2-1.0); CALCIUM 9.6 mg/dL (8.5-10.3); CREATININE 0.9 mg/dL (0.6-1.2); TOTAL PROTEIN 8.4 g/dL (6.7-8.2)
== END 2019-04-13 09:48 | disposition home or self-care (01) ==
LOC: LAB 09:47
PROVIDERS: ATTEND Dietitian, Registered
DX: C49.9 Malignant neoplasm of connective and soft tissue, unspecified (principal)
CPT/HCPCS: 36415; 80053; 85025

== ENCOUNTER 2019-06-13 08:15 | Outpatient (CLI) | payer MEDICAID ==
[2019-06-13] MEDS ORDERED: IOVERSOL 320 50 ML VIAL ONE (08:37)
[2019-06-13] MEDS ORDERED: IOVERSOL 320 100 ML VIAL IVP ONE ×2 (08:38→11:33)
[2019-06-13] MEDS ORDERED: IOVERSOL 320 50 ML VIAL PO ONE (11:33)
--- NOTE | 2019-06-14 01:50 | CT Report ---
Reason: MALIGNANT NEOPLASM OF CONNECTIVE AND SOFT TISSUE Procedure Date: 06/13/2019 Accession Number: [id number] / [id number] Procedure: CT - CHEST W CPT Code: FULL RESULT: EXAM: CT CHEST EXAM DATE: 06/13/2019 10:11 AM. CLINICAL HISTORY: MALIGNANT NEOPLASM OF CONNECTIVE AND SOFT TISSUE. COMPARISONS: CHEST 1 VIEW 03/28/2019 4:18 PM. TECHNIQUE: Routine helical CT imaging was performed through the chest. IV contrast: None. Reconstructions: Coronal and sagittal. In accordance with CT protocol optimization, one or more of the following dose reduction techniques were utilized for this exam: automated exposure control, adjustment of mA and/or KV based on patient size, or use of iterative reconstructive technique. FINDINGS: Lungs/Pleura: There are as before innumerable bilateral metastatic pulmonary nodules throughout the lungs. These range in size from a few mm up to including the largest at 24 mm. Although not directly comparable grossly the findings are similar to the chest x-ray obtained 03/28/2019 There are no acute pneumonic infiltrates. Mediastinum: The heart is not enlarged. There are atherosclerotic vascular calcifications of the coronary arteries. There is mediastinal and right hilar lymphadenopathy. A 4R lymph node measures 25 mm x40 mm transversely. There is an anterior mediastinal lymph node which measures 19 mm in diameter. Limited views to the upper abdomen are grossly unremarkable. Bones: Unremarkable. Visualized Abdomen: Unremarkable. Other: None. IMPRESSION: 1. Innumerable, bilateral metastatic pulmonary nodules. 2. No acute infiltrates. 3. Mediastinal and right hilar lymphadenopathy. RADIA
--- NOTE | 2019-06-14 17:11 | CT Report ---
Reason: MALIGNANT NEOPLASM OF CONNECTIVE AND SOFT TISSUE Procedure Date: 06/13/2019 Accession Number: [id number] / [id number] Procedure: CT - Abdomen/Pelvis W CPT Code: FULL RESULT: EXAM: CT ABDOMEN AND PELVIS EXAM DATE: 06/13/2019 10:11 AM. 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 TECHNIQUE: Routine helical CT imaging was performed through the abdomen and pelvis. IV contrast: OPTI 320 80ML. Enteric contrast: No. Reconstructions: Coronal and sagittal. In accordance with CT protocol optimization, one or more of the following dose reduction techniques were utilized for this exam: automated exposure control, adjustment of mA and/or KV based on patient size, or use of iterative reconstructive technique. FINDINGS: Lung Bases: Innumerable bilateral metastatic nodules stable to minimally increased in size compared with 03/28/2019. No pleural effusion. Liver: Percutaneous catheter courses across the left lobe of the liver into the biliary tree and ending in the duodenum. The biliary tree is now decompressed. A small amount intrahepatic air is likely related to the catheter. Gallbladder/Bile Ducts: Contracted Spleen: Normal. Pancreas: Enlarging pancreatic head mass margins difficult to accurately define. Mass-effect on the duodenal C-loop. Adrenal Glands: Normal. Kidneys: No right masses or hydronephrosis. Increased left hydroureteronephrosis due to the compressive affects of a large pelvic mass. Peritoneal Cavity/Bowel: Left mid abdomen ostomy. Minimal free fluid. No bowel obstruction. Pelvic Organs: Large complex heterogeneous lesion enhancing pelvic mass measuring approximately 13.4 x 10.4 cm axial by 18 cm vertical. What is believed to be the urinary bladder appears displaced anteriorly and superiorly by the mass. Vasculature: Enlarging filling defect within the upper superior mesenteric vein, question tumor emboli versus nonocclusive thrombus. Superior mesenteric vein appears more distended compared with previous. Bones: No significant abnormality. Other: None. IMPRESSION: Innumerable pulmonary metastatic lesions again noted stable to slightly increased in size. 2. Large pelvic mass minimally increased in vertical extent since 03/28/2019. 3. Enlarging pancreatic head mass. 4. Percutaneous biliary tube extending into the duodenum now decompresses the biliary system. 5. Increasing left hydroureteronephrosis secondary to extrinsic compression by the large pelvic tumor mass. 6. Increasing size filling defect upper superior mesenteric vein with increasing vein distention. 7. Left lower quadrant ostomy RADIA
== END 2019-06-13 08:16 | disposition home or self-care (01) ==
LOC: DI 08:15
PROVIDERS: ATTEND Internal Medicine Medical Oncology
DX: C49.9 Malignant neoplasm of connective and soft tissue, unspecified (principal); C78.02 Secondary malignant neoplasm of left lung; C78.01 Secondary malignant neoplasm of right lung; R59.0 Localized enlarged lymph nodes; R19.00 Intra-abdominal and pelvic swelling, mass and lump, unspecified site; K86.9 Disease of pancreas, unspecified; N13.30 Unspecified hydronephrosis; Z93.8 Other artificial opening status
CPT/HCPCS: 71260; 74177; Q9967

== ENCOUNTER 2019-07-06 07:57 | Outpatient (CLI) | payer MEDICAID ==
[2019-07-06 08:18] LABS: BASOPHILS # (AUTO) 0.1 10^3/uL (0.0-0.1); BASOPHILS % (AUTO) 1.5 %; EOSINOPHILS % (AUTO) 0.3 %; HGB - HEMOGLOBIN 8.2 g/dL (14.0-18.0); LYMPHOCYTES # (AUTO) 0.8 10^3/uL (1.5-3.5); LYMPHOCYTES % (AUTO) 24.4 %; MEAN CORPUSCULAR HEMOGLOBIN 32.7 pg (27.0-31.0); MEAN CORPUSCULAR HGB CONC 32.9 g/dL (32.0-36.0); MEAN CORPUSCULAR VOLUME 99.2 fL (80.0-94.0); MEAN PLATELET VOLUME 8.6 fL (7.4-11.4); MONOCYTES # (AUTO) 0.4 10^3/uL (0.0-1.0); MONOCYTES % (AUTO) 11.4 %; NEUTROPHILS % (AUTO) 61.2 %; PLT - PLATELET COUNT 184 10^3/uL (130-450); RED BLOOD COUNT 2.51 10^6/uL (4.70-6.10); RED CELL DISTRIBUTION WIDTH 17.5 % (12.0-15.0); WHITE BLOOD COUNT 3.2 x10^3/uL (4.8-10.8)
[2019-07-06 08:32] LABS: ALBUMIN 3.1 g/dL (3.2-5.5); ALBUMIN/GLOBULIN RATIO 0.9 (1.0-2.2); BILIRUBIN,TOTAL 0.5 mg/dL (0.2-1.0); CALCIUM 8.8 mg/dL (8.5-10.3); CREATININE 0.6 mg/dL (0.6-1.2); TOTAL PROTEIN 6.6 g/dL (6.7-8.2)
== END 2019-07-06 07:58 | disposition home or self-care (01) ==
LOC: LAB 07:57
PROVIDERS: ATTEND Nurse Practitioner Acute Care
DX: C49.9 Malignant neoplasm of connective and soft tissue, unspecified (principal)
CPT/HCPCS: 36415; 80053; 85025

== ENCOUNTER 2019-07-25 07:50 | Outpatient (CLI) | payer MEDICAID ==
[2019-07-25 08:08] LABS: BASOPHILS # (AUTO) 0.1 10^3/uL (0.0-0.1); BASOPHILS % (AUTO) 1.3 %; EOSINOPHILS % (AUTO) 0.8 %; HGB - HEMOGLOBIN 10.2 g/dL (14.0-18.0); LYMPHOCYTES # (AUTO) 1.2 10^3/uL (1.5-3.5); LYMPHOCYTES % (AUTO) 31.4 %; MEAN CORPUSCULAR HEMOGLOBIN 30.8 pg (27.0-31.0); MEAN CORPUSCULAR HGB CONC 31.4 g/dL (32.0-36.0); MEAN CORPUSCULAR VOLUME 98.2 fL (80.0-94.0); MEAN PLATELET VOLUME 8.9 fL (7.4-11.4); MONOCYTES # (AUTO) 0.4 10^3/uL (0.0-1.0); NEUTROPHILS # (AUTO) 2.2 10^3/uL (1.5-6.6); NEUTROPHILS % (AUTO) 55.5 %; PLT - PLATELET COUNT 221 10^3/uL (130-450); RED BLOOD COUNT 3.31 10^6/uL (4.70-6.10); RED CELL DISTRIBUTION WIDTH 14.9 % (12.0-15.0); WHITE BLOOD COUNT 3.9 x10^3/uL (4.8-10.8)
[2019-07-25 08:20] LABS: ALBUMIN 3.6 g/dL (3.2-5.5); BILIRUBIN,TOTAL 0.5 mg/dL (0.2-1.0); CALCIUM 9.3 mg/dL (8.5-10.3); CREATININE 0.7 mg/dL (0.6-1.2); TOTAL PROTEIN 7.1 g/dL (6.7-8.2)
== END 2019-07-25 07:51 | disposition home or self-care (01) ==
LOC: LAB 07:50
PROVIDERS: ATTEND Nurse Practitioner Acute Care
DX: C49.9 Malignant neoplasm of connective and soft tissue, unspecified (principal)
CPT/HCPCS: 36415; 80053; 85025

== ENCOUNTER 2019-08-02 11:23 | Outpatient (CLI) | payer MEDICAID ==
[2019-08-02] MEDS ORDERED: IOVERSOL 320 50 ML VIAL ONE (11:52)
[2019-08-02] MEDS ORDERED: IOVERSOL 320 100 ML VIAL IVP ONE ×2 (11:52→17:02)
[2019-08-02] MEDS ORDERED: IOVERSOL 320 50 ML VIAL PO ONE (17:02)
--- NOTE | 2019-08-03 11:11 | CT Report ---
Reason: METASTATIC SARCOMA, LEFT LEG PAIN Procedure Date: 08/02/2019 Accession Number: [id number] / [id number] Procedure: CT - Abdomen/Pelvis W CPT Code: Final Report FULL RESULT: EXAM: CT ABDOMEN AND PELVIS EXAM DATE: 08/02/2019 01:00 PM. CLINICAL HISTORY: METASTATIC SARCOMA, LEFT LEG PAIN. COMPARISONS: ABDOMEN/PELVIS W/ 06/13/2019 9:45 AM. TECHNIQUE: Routine helical CT imaging was performed through the abdomen and pelvis. IV contrast: OPTI 320 90ML. Enteric contrast: No. Reconstructions: Coronal and sagittal. In accordance with CT protocol optimization, one or more of the following dose reduction techniques were utilized for this exam: automated exposure control, adjustment of mA and/or KV based on patient size, or use of iterative reconstructive technique. FINDINGS: Lung Bases: Multiple bilateral pulmonary nodules in the visualized lung bases are redemonstrated with example nodules as follows: (Series 3, image 6) 14 mm, previously 17 mm, pulmonary nodule in the right lung base. (Series 3, image 11) 16 x 12 mm, previously 21 x 14 mm left lower lobe pulmonary nodule. (Series 3, image 11) 15 x 14 mm, previously 16 x 12 mm, left upper lobe pulmonary nodule. (Series 3, image 1) 9 x 9 mm, previously 10 x 9 mm, pulmonary nodule in the right middle lobe. (Series 3, image 10) 15 x 9 mm, previously 19 x 13 mm, pulmonary nodule in the left lung base. Liver: Again demonstrated is a anterior approach percutaneous biliary drain extending into the proximal duodenum. Gallbladder/Bile Ducts: Unremarkable. Spleen: Normal. Pancreas: Pancreatic head mass redemonstrated measuring 5.5 x 5.3 cm, previously 5.3 x 5.0 cm. Adrenal Glands: Normal. Kidneys: Moderate to severe left-sided hydronephrosis redemonstrated and similar to the prior examination. This is thought likely due to extrinsic compression from the pelvic mass. Peritoneal Cavity/Bowel: Large lobulated mass in the pelvis again demonstrated measuring approximately 13.9 x 11.0 x 18.3 cm, previously 12.9 x 11.4 x 17.9 cm. This fills the entire pelvis displacing bowel peripherally. Left lower quadrant ostomy redemonstrated. No bowel obstruction. The appendix is well visualized and normal. Pelvic Organs: Normal. The bladder and visualized pelvic organs are within normal limits. Vasculature: Lurching thrombus in the SMV measuring up to 27 mm, previously 20 mm in length (series 5, image 15). Bones: Lytic lesion in the left superior ramus redemonstrated measuring approximately 25 x 18 mm, previously 23 x 16 mm. No pathologic fracture identified. Other: None. IMPRESSION: 1. Large pelvic mass again demonstrated with slight increase in size from the prior examination. 2. Continued enlargement of the pancreatic head mass with percutaneous common bile duct stent remaining in place. 3. Enlarging SMV thrombus. 4. Persistent left-sided moderate to severe hydronephrosis likely secondary to extrinsic compression of the distal ureter by the pelvic mass. 5. Left lower quadrant ostomy with no evidence of bowel obstruction. 6. Multiple bilateral pulmonary lesions again demonstrated all of which appear to have decreased in size from the prior examination. No enlarging or new lesions identified in the lung bases. RADIA
--- NOTE | 2019-08-03 11:22 | CT Report ---
Reason: METASTATIC SARCOMA, LEFT LEG PAIN Procedure Date: 08/02/2019 Accession Number: [id number] / [id number] Procedure: CT - CHEST W CPT Code: Final Report FULL RESULT: EXAM: CT CHEST EXAM DATE: 08/02/2019 01:00 PM. CLINICAL HISTORY: METASTATIC SARCOMA, LEFT LEG PAIN. COMPARISONS: ABDOMEN/PELVIS W/ 06/13/2019 9:45 AM CHEST W/ 06/13/2019 9:45 AM. TECHNIQUE: Routine helical CT imaging was performed through the chest. IV contrast: 90 mL Optiray 320. Reconstructions: Coronal and sagittal. In accordance with CT protocol optimization, one or more of the following dose reduction techniques were utilized for this exam: automated exposure control, adjustment of mA and/or KV based on patient size, or use of iterative reconstructive technique. FINDINGS: Lungs/Pleura: Mom numerous bilateral pulmonary nodules are redemonstrated with interval decrease in all of the nodules with no new pulmonary nodules identified. Examples as follows: (Series 3, image 103) 12 mm, previously 13 mm, juxtapleural pulmonary nodule in the left upper lobe. (Series 3, image 192) 22 x 13 mm, previously 22 x 16 mm, left upper lobe pulmonary nodule (series 3, image 192). (Series 3, image 203) 25 x 16 mm, previously 24 x 19 mm, right lower lobe pulmonary nodule. (Series 3, image 260) 13 x 9 mm, previously 16 x 11 mm, right lower lobe pulmonary nodule. (Series 3, image 269) 16 x 9 mm, previously 21 x 13 mm, left lower lobe pulmonary nodule. Mediastinum: There is an anterior mediastinal lymph measuring 22 x 17 mm, previously 23 x 20 mm (series 2, image 38). There is a precarinal lymph node measuring 41 x 21 mm, previously 40 x 25 mm. No new lymphadenopathy. Bones: Unremarkable. Visualized Abdomen: Unremarkable. Other: None. IMPRESSION: 1. Innumerable bilateral metastatic lesions throughout both lungs with overall decrease in size of the pulmonary nodules compared to the prior examination. No new nodules or enlarging nodules identified. 2. Mediastinal lymph nodes have also demonstrated a slight decrease in size since the prior examination. No new lymphadenopathy. 3. Overall there is been a positive response to treatment. 4. Please see separate abdomen and pelvis CT report from today for subdiaphragmatic findings. RADIA
== END 2019-08-02 11:24 | disposition home or self-care (01) ==
LOC: DI 11:23
PROVIDERS: ATTEND Internal Medicine Medical Oncology
DX: C49.9 Malignant neoplasm of connective and soft tissue, unspecified (principal); M79.605 Pain in left leg; C78.02 Secondary malignant neoplasm of left lung; C78.01 Secondary malignant neoplasm of right lung; R19.00 Intra-abdominal and pelvic swelling, mass and lump, unspecified site; K86.9 Disease of pancreas, unspecified; N13.1 Hydronephrosis with ureteral stricture, not elsewhere classified
CPT/HCPCS: 71260; 74177; Q9967

== ENCOUNTER 2019-12-05 16:53 | Outpatient (CLI) | payer MEDICAID ==
[2019-12-05 17:16] LABS: BASOPHILS % (AUTO) 0.8 %; HGB - HEMOGLOBIN 8.5 g/dL (14.0-18.0); LYMPHOCYTES % (AUTO) 7.7 %; MEAN CORPUSCULAR HEMOGLOBIN 26.3 pg (27.0-31.0); MEAN CORPUSCULAR HGB CONC 31.6 g/dL (32.0-36.0); MEAN CORPUSCULAR VOLUME 83.3 fL (80.0-94.0); MEAN PLATELET VOLUME 9.5 fL (7.4-11.4); MONOCYTES % (AUTO) 3.9 %; NEUTROPHILS % (AUTO) 85.7 %; PLT - PLATELET COUNT 283 10^3/uL (130-450); RED BLOOD COUNT 3.23 10^6/uL (4.70-6.10); RED CELL DISTRIBUTION WIDTH 15.5 % (12.0-15.0); WHITE BLOOD COUNT 9.2 x10^3/uL (4.8-10.8)
[2019-12-05 17:18] LABS: ABNORMAL LYMPHS % (MANUAL) 0 %
[2019-12-05 17:25] LABS: ALBUMIN 3.3 g/dL (3.2-5.5); ALBUMIN/GLOBULIN RATIO 0.7 (1.0-2.2); BILIRUBIN,TOTAL 0.5 mg/dL (0.2-1.0); CALCIUM 9.2 mg/dL (8.5-10.3); CREATININE 3.3 mg/dL (0.6-1.2); TOTAL PROTEIN 8.1 g/dL (6.7-8.2)
[2019-12-05 17:40] LABS: BAND NEUTROPHILS % (MANUAL) 4 %; DIFFERENTIAL COMMENT MANUAL DIFFERENTIAL; LYMPHOCYTES # (MANUAL) 0.7 10^3/uL (1.5-3.5); LYMPHOCYTES % (MANUAL) 8 %; MONOCYTES # (MANUAL) 0.5 10^3/uL (0.0-1.0); PLATELET ESTIMATE, MANUAL NORMAL (130-450,000) (NORMAL); PLATELET MORPHOLOGY NORMAL APPEARANCE (NORMAL); RBC MORPHOLOGY (MULTIPLE) 1+ ANISOCYTOSIS (NORMAL)
== END 2019-12-05 16:54 | disposition home or self-care (01) ==
LOC: LAB 16:53
PROVIDERS: ATTEND Nurse Practitioner Acute Care
DX: C49.9 Malignant neoplasm of connective and soft tissue, unspecified (principal)
CPT/HCPCS: 36415; 80053; 85025

== ENCOUNTER 2019-12-07 12:55 | Outpatient (CLI) | payer MEDICAID ==
[2019-12-07 13:14] LABS: BASOPHILS # (AUTO) 0.1 10^3/uL (0.0-0.1); BASOPHILS % (AUTO) 0.4 %; EOSINOPHILS % (AUTO) 0.1 %; HGB - HEMOGLOBIN 9.1 g/dL (14.0-18.0); LYMPHOCYTES # (AUTO) 0.8 10^3/uL (1.5-3.5); LYMPHOCYTES % (AUTO) 7.1 %; MEAN CORPUSCULAR HEMOGLOBIN 25.6 pg (27.0-31.0); MEAN CORPUSCULAR HGB CONC 30.4 g/dL (32.0-36.0); MEAN CORPUSCULAR VOLUME 84.2 fL (80.0-94.0); MEAN PLATELET VOLUME 9.1 fL (7.4-11.4); NEUTROPHILS # (AUTO) 9.2 10^3/uL (1.5-6.6); NEUTROPHILS % (AUTO) 80.6 %; PLT - PLATELET COUNT 344 10^3/uL (130-450); RED BLOOD COUNT 3.55 10^6/uL (4.70-6.10); WHITE BLOOD COUNT 11.4 x10^3/uL (4.8-10.8)
[2019-12-07 13:25] LABS: ALBUMIN 3.2 g/dL (3.2-5.5); ALBUMIN/GLOBULIN RATIO 0.6 (1.0-2.2); BILIRUBIN,TOTAL 0.5 mg/dL (0.2-1.0); CALCIUM 9.2 mg/dL (8.5-10.3); CREATININE 1.5 mg/dL (0.6-1.2); TOTAL PROTEIN 8.4 g/dL (6.7-8.2)
== END 2019-12-07 12:56 | disposition home or self-care (01) ==
LOC: LAB 12:55
PROVIDERS: ATTEND Nurse Practitioner Acute Care
DX: C49.9 Malignant neoplasm of connective and soft tissue, unspecified (principal)
CPT/HCPCS: 36415; 80053; 85025

== ENCOUNTER 2019-12-12 09:07 | Outpatient (CLI) | payer MEDICAID ==
[2019-12-12] MEDS ORDERED: IOVERSOL 320 50 ML VIAL ONE (09:13)
[2019-12-12] MEDS ORDERED: IOVERSOL 320 100 ML VIAL IVP ONE ×2 (09:13→11:51)
[2019-12-12] MEDS ORDERED: IOVERSOL 320 50 ML VIAL PO ONE (11:51)
--- NOTE | 2019-12-13 09:31 | CT Report ---
Reason: MALIGNANT NEOPLASM OF CONNECTIVE AND SOFT TISSUE Procedure Date: 12/12/2019 Accession Number: [id number] / [id number] Procedure: CT - Abdomen/Pelvis W CPT Code: Final Report FULL RESULT: EXAM: CT ABDOMEN AND PELVIS EXAM DATE: 12/12/2019 11:48 AM. CLINICAL HISTORY: MALIGNANT NEOPLASM OF CONNECTIVE AND SOFT TISSUE. COMPARISONS: ABDOMEN/PELVIS W/ 08/02/2019 12:36 PM. TECHNIQUE: Routine helical CT imaging was performed through the abdomen and pelvis. IV contrast: 80 mL Optiray 320. Enteric contrast: No. Reconstructions: Coronal and sagittal. In accordance with CT protocol optimization, one or more of the following dose reduction techniques were utilized for this exam: automated exposure control, adjustment of mA and/or KV based on patient size, or use of iterative reconstructive technique. FINDINGS: Lung Bases: Multiple bilateral pulmonary nodules again demonstrated with example nodules as follows: (Series 3, image 8) 18 x 14 mm, previously 17 x 11 mm, nodule in the right lower lobe (Series 3, image 8) 19 x 14 mm, previously 12 x 12 mm, nodule in the right lower lobe (Series 3, image 7) 19 x 15 mm, previously 12 x 8 mm, nodule in the left lung base. (Series 3, image 7) 14 x 11 mm, previously 12 x 9 mm, nodule in the left lung base. Liver: There is a 13 x 10 mm, previously 7 x 3 mm, irregular hypoechoic structure in the posterior periphery of the right lobe (series 3, image 21). Gallbladder/Bile Ducts: Again demonstrated is an anterior approach percutaneous biliary drain which extends through the left lobe of the liver into the common bile duct and duodenum. Spleen: Normal. Pancreas: There is a hypodense lobulated pancreatic head mass measuring approximately 6.7 x 5.0 x 8.6 cm, previously 4.8 x 3.6 x 4.6 cm. Tumor extends into the SMV with tumor thrombus measuring 3.0 x 0.8 cm, previously 2.7 x 1.6 cm on the coronal plane (series 5, image 12). Adrenal Glands: Normal. Kidneys: Moderate left-sided hydronephrosis redemonstrated. Peritoneal Cavity/Bowel: Left lower quadrant ostomy redemonstrated. No bowel obstruction. The appendix is not visualized. Pelvic Organs: There is a heterogeneously hypodense mass in the pelvis measuring at least 12.1 x 10.9 x 15.0 cm, previously 13.9 x 11.9 x 18.3 cm (series 3, image 68). This produces mass-effect on the bladder anteriorly and fills the lower pelvis. Vasculature: No aneurysms or other significant abnormality. Bones: No significant abnormality. Other: None. IMPRESSION: 1. Large pelvic mass again demonstrated with slight decrease in size since the prior examination measuring 15 x 12 x 11 cm, previously 18 x 14 x 12 cm. 2. Continued enlargement of the pancreatic head mass with enlargement of the tumor thrombus within the SMV. This remains patent. 3. Moderate left-sided hydronephrosis redemonstrated and similar. 4. Numerous bilateral metastatic pulmonary lesions have increased in size since the prior examination. RADIA
--- NOTE | 2019-12-13 09:52 | CT Report ---
Reason: MALIGNANT NEOPLASM OF CONNECTIVE AND SOFT TISSUE Procedure Date: 12/12/2019 Accession Number: [id number] / [id number] Procedure: CT - CHEST W CPT Code: Final Report FULL RESULT: EXAM: CT CHEST EXAM DATE: 12/12/2019 11:48 AM. CLINICAL HISTORY: MALIGNANT NEOPLASM OF CONNECTIVE AND SOFT TISSUE. COMPARISONS: ABDOMEN/PELVIS W/ 08/02/2019 12:36 PM CHEST W/ 08/02/2019 12:36 PM. TECHNIQUE: Routine helical CT imaging was performed through the chest. IV contrast: 80 mL Optiray 320. Reconstructions: Coronal and sagittal. In accordance with CT protocol optimization, one or more of the following dose reduction techniques were utilized for this exam: automated exposure control, adjustment of mA and/or KV based on patient size, or use of iterative reconstructive technique. FINDINGS: Lungs/Pleura: Numerous bilateral metastatic lesions throughout both lungs have increased significantly in size since the prior examination with example nodules as follows: (Series 3, image 117) right upper lobe pulmonary nodule measuring 23 x 19 mm, previously 18 x 14 mm (Series 3, image 147) right upper lobe pulmonary nodule measuring 31 x 22 mm, previously 17 x 10 mm (Series 3, image 26) right upper lobe mass measuring 31 x 24 mm, previously 14 x 10 mm (Series 3, image 180) left lower lobe pulmonary nodule measuring 23 x 16 mm, previously 22 x 13 mm (Series 3, image 29) right lower lobe pulmonary nodule measuring 29 x 19 mm, previously 25 x 16 mm. Mediastinum: Prevascular lymph node measuring up to 25 x 19 mm, previously 22 x 17 mm (series 2, image 39) precarinal lymph no measuring 37 x 22 mm, previously 41 x 21 mm Bones: Unremarkable. Visualized Abdomen: Please see separate abdomen/pelvis CT report from today for sub-diaphragmatic findings. Other: None. IMPRESSION: 1. Enlarging numerous bilateral pulmonary lesions concerning for progression of disease. 2. Enlarging prevascular lymph node with a similar precarinal lymph node redemonstrated. 3. Please see separate abdomen/pelvis CT report from today for subdiaphragmatic findings. RADIA
== END 2019-12-12 09:08 | disposition home or self-care (01) ==
LOC: DI 09:07
PROVIDERS: ATTEND Nurse Practitioner Acute Care
DX: C49.9 Malignant neoplasm of connective and soft tissue, unspecified (principal); R19.00 Intra-abdominal and pelvic swelling, mass and lump, unspecified site; K86.9 Disease of pancreas, unspecified; K55.069 Acute infarction of intestine, part and extent unspecified; N13.30 Unspecified hydronephrosis; R91.8 Other nonspecific abnormal finding of lung field; R59.0 Localized enlarged lymph nodes
CPT/HCPCS: 71260; 74177; 93306; Q9967

== ENCOUNTER 2019-12-17 11:09 | Outpatient (CLI) | payer MEDICAID | END 2019-12-17 11:10 | disposition critical access hospital (66) | LOC: EMS 11:09 | PROVIDERS: ATTEND Surgery | DX: R53.1 Weakness (principal) | CPT/HCPCS: A0425; A0429; A0999 ==

== ENCOUNTER 2019-12-17 11:14 | Inpatient (IN) | payer MEDICAID ==
--- NOTE | 2019-12-17 11:28 | ED Physician Documentation ---
History of Present Illness - Stated complaint Stated Complaint: COMFORT CARE - History obtained from History obtained from: Patient - Additonal information Additional information: This is a 54-year-old man who has colon cancer has a colostomy bag he is not able to take care of it at home and apparently there was discussion with the family and the hospitalist about the patient being admitted for comfort care but he was unable to be made a direct admit and so is here in the emergency department. The patient himself says he does not have any pain right now he is difficult to get any history out of because he is quite heavily medicated apparently is falling asleep as I am just talking to him. He complains of a little bit of a sore throat just after me mentioning it. Denies any stuffy nose now that he has oxygen on. He is not. He reports that he is not currently on chemo. He denies tube feedings. Review of Systems Constitutional: denies: Fever Throat: reports: Sore throat Respiratory: denies: Cough GI: reports: Other (Has a colostomy bag and some other sort of drainage tube in the epigastric region.). denies: Abdominal Pain PD PAST MEDICAL HISTORY - Past Medical History Cardiovascular: None Respiratory: None Endocrine/Autoimmune: None GI: None : None HEENT: None Psych: None Musculoskeletal: Other Derm: Other - Past Surgical History Past Surgical History: Yes HEENT: Tonsil/Adenoidectomy - Present Medications Home Medications: Ambulatory Orders Medication Instructions Recorded Confirmed Tamsulosin HCl [Flomax] 0.4 mg PO DAILY #30 cap.er.24h 11/24/18 Gabapentin 03/28/19 Morphine Ir [Ms Ir] 15 mg PO 03/28/19 Morphine Sulfate 30 mg PO 03/28/19 Oxycodone HCl [Roxicodone] 03/28/19 - Allergies Allergies/Adverse Reactions: Allergies Allergy/AdvReac Type Severity Reaction Status Date / Time No Known Drug Allergies Allergy Verified 12/17/19 11:28 - Social History Does the pt smoke?: Yes Smoking Status: Current some day smoker Does the pt drink ETOH?: No Does the pt have substance abuse?: No PD ED PE NORMAL - Vitals Vital signs reviewed: Yes - General General: Other (Thin cachectic appearing man who is very somnolent seems a little confused). No: Alert and oriented X 3 - HEENT HEENT: Other (Eyes are sunken and mucous membranes are very dry.) - Neck Neck: No adenopathy - Cardiac Cardiac: RRR, No murmur - Respiratory Respiratory: No respiratory distress, Clear bilaterally - Abdomen Abdomen: Normal bowel sounds, Other (There is some sort of drainage tube exiting the abdomen around the epigastric area with what appears like bile in it. There is a colostomy bag in the left lower quadrant.) - Neuro Neuro: Other (Somnolent. Knows his name but otherwise not oriented. He will follow commands. Speech is a little difficult to understand but I think that is more from his dried mouth.) Results - Vitals Vitals: Vital Signs - 24 hr 12/17/19 11:28 Temperature 36.5 C Heart Rate 105 H Respiratory 17 Rate Blood Pressure 108/81 H O2 Saturation 94 Oxygen O2 Source Room air PD MEDICAL DECISION MAKING - ED course Complexity details: d/w media consultant ED course: This was instructed to contact the hospitalist for the patient to be admitted through the emergency department. After speaking with the hospitalist on-call they indicated that we did not need to do any type of orders here in the ER and they would take the patient on the floor to complete the care. Departure - Departure Disposition: [facility] DC/Xfer Clinical Impression: Need for comfort care Colon cancer Qualifiers: Colon location: unspecified part of colon Qualified Code(s): C18.9 - Malignant neoplasm of colon, unspecified Condition: Poor
[2019-12-17] MEDS ORDERED: ACETAMINOPHEN 325 MG TABLET PO PRN (13:22)
[2019-12-17] MEDS ORDERED: oxyCODONE 5 MG TABLET PO PRN (13:22)
[2019-12-17] MEDS ORDERED: ONDANSETRON 4 MG/2 ML VIAL IVP PRN (13:22)
[2019-12-17] MEDS ORDERED: CARBOXYMETHYLCELLULOSE OPHTH DROPS EACHEYE PRN (13:22)
[2019-12-17] MEDS ORDERED: HALOPERIDOL 10 MG/5 ML UDC SL PRN (13:22)
[2019-12-17] MEDS ORDERED: LORazepam 1 MG TABLET PO PRN (13:22)
[2019-12-17] MEDS ORDERED: ONDANSETRON ODT 4 MG TABLET TL PRN (13:22)
[2019-12-17] MEDS ORDERED: TEMAZEPAM 15 MG CAPSULE PO PRN (13:22)
[2019-12-17 13:35] LABS: BASOPHILS # (AUTO) 0.1 10^3/uL (0.0-0.1); BASOPHILS % (AUTO) 0.3 %; HGB - HEMOGLOBIN 9.8 g/dL (14.0-18.0); LYMPHOCYTES # (AUTO) 0.3 10^3/uL (1.5-3.5); LYMPHOCYTES % (AUTO) 1.3 %; MEAN CORPUSCULAR HEMOGLOBIN 26.8 pg (27.0-31.0); MEAN CORPUSCULAR HGB CONC 31.8 g/dL (32.0-36.0); MEAN CORPUSCULAR VOLUME 84.2 fL (80.0-94.0); MEAN PLATELET VOLUME 9.6 fL (7.4-11.4); MONOCYTES % (AUTO) 3.9 %; NEUTROPHILS # (AUTO) 23.7 10^3/uL (1.5-6.6); NEUTROPHILS % (AUTO) 93.3 %; PLT - PLATELET COUNT 521 10^3/uL (130-450); RED BLOOD COUNT 3.66 10^6/uL (4.70-6.10); RED CELL DISTRIBUTION WIDTH 16.7 % (12.0-15.0); WHITE BLOOD COUNT 25.4 x10^3/uL (4.8-10.8)
[2019-12-17 13:57] LABS: PLATELET ESTIMATE, MANUAL INCREASED (>450,000) (NORMAL); RBC MORPHOLOGY (MULTIPLE) 3+ ANISOCYTOSIS (NORMAL)
[2019-12-17] MEDS ORDERED: MORPHINE ER 15 MG TABLET PO SCH (14:00)
[2019-12-17] MEDS ORDERED: SODIUM CHLORIDE 0.9% 1,000 ML IV SCH (14:00)
[2019-12-17 14:16] LABS: ALBUMIN 3.4 g/dL (3.2-5.5); ALBUMIN/GLOBULIN RATIO 0.7 (1.0-2.2); BILIRUBIN,TOTAL 0.8 mg/dL (0.2-1.0); CALCIUM 9.7 mg/dL (8.5-10.3); CREATININE 4.8 mg/dL (0.6-1.2); TOTAL PROTEIN 8.6 g/dL (6.7-8.2)
[2019-12-17] MEDS: MORPHINE SULFATE ER 30 MG TABLET PO SCH ×2 (15:08→21:01)
[2019-12-17] MEDS ORDERED: SODIUM POLYSTYRENE SULFONATE 15 GM/60 ML BOTTLE PO SCH (15:20)
[2019-12-17] MEDS: LIPASE/PROTEASE/AMYLASE CAPSULE PO SCH (16:07)
[2019-12-17] MEDS: SODIUM CHLORIDE FLUSH 0.9% 10 ML SYRINGE IVP SCH (16:07)
--- NOTE | 2019-12-17 17:54 | PHARMACY PROGRESS NOTE ---
- Best Possible Medication History Admit Date and Time: 12/17/19 1322 Processed by: Pharmacy Medication History completed: Yes Patient Interview: Pt unable to participate Secondary Source(s): Pharmacy records, Insurance records As the person ultimately responsible for medication therapy, providers are able to order a medication from an existing home medication list in [facility] via the "Reconcile Routine" prior to Confirmation of that medication by ict support and test engineers. Such practice is discouraged except when the physician, in their clinical judgment, deems that a medical need exists for a medication without regard to previous use.
--- NOTE | 2019-12-17 18:40 | HISTORY & PHYSICAL EXAMINATION ---
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 Pt had labs drawn last week and was told he had low sodium and high potassium. He reports constant and uncontrolled pain "everywhere." reports pt has been mildly confused and so weak in his arms and legs with falls at home recently. Pt was able to ambulate independently about 5 days sago. Denies any recent N/V, fevers, cough, significant changes in urination, or SOB. Pt has gotten nauseous if cholecystostomy gets clogged but this hasn't happened recently. Patient and have been told there are no further treatment options for his cancer, and reports that she has an upcoming appointment to discuss hospice information with an RN on Thursday. He has lost 50 pounds since October 2018. requesting that patient be treated for his low sodium and high potassium. She reports advanced directives has already been filled out: DNR/DNI, selective treatment, no artiifical nutrition. She will bring a copy of this in. Initial labs signifcant for Na 122, K 5.9, BUN 152, Cr 4.8, Alk Phos 138. WBC 25,4000, Hb 9.8, and Plt 521. Initial vital signs stable except for mildly elevated HR 105. History - Past Medical History Cardiovascular: reports: None, Other (Chemo induced cardiomyopathy) Respiratory: reports: None, Other (Metastases to lung) Endocrine/Autoimmune: reports: None GI: reports: None, Other (Metastatic pelvic mass to pancreas) : reports: None HEENT: reports: None Psych: reports: None Musculoskeletal: reports: Other Derm: reports: Other MRSA Hx?: No - Past Surgical History General: reports: Other (Cholecystostomy, Port-a-cath, colostomy bag) - Family & Social History Family History Comment/Other: Pt is adopted, and only knows biological mother's medical history. No known medical condition in his mother Living arrangement: At home Living Situation: With spouse/s.o. - Substance History Use: Uses substance without health or social issues: Cannabis, Opioid Abuse: Recurrent use of substance despite neg consequences: Other (History of alcoholism. Only occasional use currently) Dependence: Experiences withdrawal or developed tolerances: NONE Tobacco Details: Other (Former smoker) - POLST Patient has POLST: Yes POLST Status: DNR Meds/Allgy - Home Medications Home Medications: Ambulatory Orders Medication Instructions Recorded Confirmed Tamsulosin HCl [Flomax] 0.4 mg PO DAILY #30 cap.er.24h 11/24/18 12/17/19 Morphine Sulfate 60 mg PO BID 03/28/19 12/17/19 Oxycodone HCl [Roxicodone] 15 - 30 mg PO Q3H PRN 03/28/19 12/17/19 Gabapentin 300 mg PO BID 12/17/19 12/17/19 Lipase/Protease/Amylase [Creon Dr 1 cap PO TIDWM 12/17/19 12/17/19 24,000 Units Capsule] - Allergies Allergies/Adverse Reactions: Allergies Allergy/AdvReac Type Severity Reaction Status Date / Time No Known Drug Allergies Allergy Verified 12/17/19 11:28 Review of Systems - Gastrointestinal Gastrointestinal: reports: Abdominal pain, Poor appetite - Musculoskeletal Musculoskeletal: reports: Muscle weakness - Neurological Neurological: reports: General weakness, Incoordination - All Other Systems All Other Systems: reports: Reviewed and negative Prior Level of Functionality: Ambulating independently and upstairs a few days ago Exam - Vital Signs Vital Signs: Vital Signs x48h Temp Pulse Pulse Resp BP BP BP 12/17/19 16:18 36.2 C L 89 16 133/75 H 12/17/19 15:57 36.6 C 94 16 12/17/19 14:43 36.6 C 94 124/83 H 12/17/19 11:28 36.5 C 105 H 17 108/81 H Pulse Ox 12/17/19 16:18 97 12/17/19 15:57 97 12/17/19 14:43 98 12/17/19 11:28 94 - Physical Exam General Appearance: positive: No acute distress, Other (Cachexia) Eyes Bilateral: positive: No scleral icterus Respiratory: positive: No respiratory distress, Breath sounds nml Cardiovascular: positive: Tachycardia (Regular rhythm) Peripheral Pulses: positive: 2+ Abdomen: positive: Tenderness, Other (Cholecystostomy tube with bilious drainage. Colostomy bag full.) Extremities: positive: No pedal edema Neurologic/Psychiatric: positive: Weakness, Other (Follows commands and answers simple questions. Intermittently appears disoriented or mumbles incoherently) Conclusion/Plan - Problem List (1) Metastatic sarcoma Conclusion/Plan: Status post chemotherapy and radiation. No further treatment options. Appears that hospice has been recommended by PCP and/or oncologist Plan: -Hospice referral placed -[employer] goals of care with after 24 hours of selective treatment including IV fluids and kayexalate. Pt and are open -DNR/DNI (2) Pelvic mass in male Conclusion/Plan: Plan: As above (3) Cancer-related pain Conclusion/Plan: Plan: -Continue home regimen of MS Contin q8, PRN oxycodone, and gabapentin -IV Dilaudid PRN. -Per discussion with , her ultimate priority is comfort so comfort care medications ordered but wishes to pursue selective treatment for 24 hours to see if significant improvement (4) Hyponatremia Conclusion/Plan: Suspect due to hypovolemia due to decreased PO intake Plan: -IV fluids with NS -Monitor sodium levels closely (5) Bile duct obstruction Conclusion/Plan: Status post cholecystostomy Plan: -Continue routine cholecystostomy care (6) Acute kidney injury Conclusion/Plan: Suspect due to hypovolemia from minimal PO intake Plan: -IV fluids (7) Increased anion gap metabolic acidosis Conclusion/Plan: Suspect due to starvation ketoacidosis and LOLA Plan: -Check UA for ketones -Check lactate -Treatment of LOLA as above (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 Admit K 5.9 Plan: -Kayexalate BID x 2 -Monitor K -IVF for LOLA as above (10) Pancreatic mass Conclusion/Plan: Metastatic disease of pancreas Plan: -Continue pancrelipase (11) Lumbar radiculopathy Conclusion/Plan: Plan: -Continue home gabapentin (12) History of alcoholism Conclusion/Plan: Noted. Only occasional use for at least 6 months per - Lab Results Fish Bones: 12/17/19 13:30 12/17/19 13:30
[2019-12-17 18:55] LABS: CALCIUM 9.1 mg/dL (8.5-10.3); CREATININE 4.4 mg/dL (0.6-1.2)
[2019-12-17] MEDS ORDERED: SODIUM POLYSTYRENE SULFONATE 15 GM/60 ML BOTTLE PO ONE (19:10)
[2019-12-17] MEDS: GABAPENTIN 300 MG CAPSULE PO SCH (20:14)
--- NOTE | 2019-12-17 21:01 | CT Report ---
Reason: Abdominal distention, ostomy full of air Procedure Date: 12/17/2019 Accession Number: [id number] / [id number] Procedure: CT - Abdomen/Pelvis WO CPT Code: Final Report FULL RESULT: EXAM: CT CHEST, ABDOMEN AND PELVIS EXAM DATE: 12/17/2019 08:00 PM. CLINICAL HISTORY: Abdominal distention, ostomy full of air. COMPARISONS: ABDOMEN/PELVIS W/ 12/12/2019 11:33 AM. TECHNIQUE: Routine helical CT imaging was performed through the chest, abdomen, and pelvis. IV contrast: None.. Enteric contrast: No. Reconstructions: Coronal and sagittal. In accordance with CT protocol optimization, one or more of the following dose reduction techniques were utilized for this exam: automated exposure control, adjustment of mA and/or KV based on patient size, or use of iterative reconstructive technique. FINDINGS: Lungs/Pleura: Extensive bilateral pulmonary nodules in the visualized lung bases redemonstrated and similar to the prior examination. Mediastinum: Normal. No adenopathy or masses. Liver: Hypodense structure in the posterior aspect of the right lobe of the liver measuring 16 x 11 mm, previously 13 x 10 mm (series 2, image 22). Gallbladder/Bile Ducts: Unremarkable. Spleen: Normal. Pancreas: Pancreatic head mass redemonstrated with percutaneous biliary stent redemonstrated. Adrenal Glands: Normal. Kidneys: Moderate hydronephrosis in the left kidney redemonstrated. Peritoneal Cavity/Bowel: Oral contrast from the prior examination has progressed distally in the bowel now within the proximal colon. No bowel obstruction. The appendix is well visualized and normal. Pelvic Organs: Large pelvic mass redemonstrated measuring approximately 11.6 x 10.9 cm, previously 9.5 x 0.8 cm (series 6, image 80). The bladder is displaced superiorly and anteriorly. Vasculature: No aneurysms or other significant abnormality. Bones: No significant abnormality. Other: None. IMPRESSION: 1. Oral contrast from the prior examination has progressed distally in the bowel and is seen predominantly within the proximal colon. No bowel obstruction. 2. Left lower quadrant ostomy is unremarkable. 3. No free air or fluid in the abdomen or pelvis. 4. Large pelvic mass redemonstrated. 5. Pancreatic head mass redemonstrated. Percutaneous biliary stent in place. 6. Extensive metastatic disease in the visualized lung bases redemonstrated. 7. Moderate left-sided hydronephrosis redemonstrated. RADIA
[2019-12-17 21:05] LABS: MUDS CUTOFF CONCENTRATIONS CUTOFF CONC BELOW:
[2019-12-17 21:07] LABS: BILIRUBIN,URINE NEGATIVE (NEGATIVE); GLUCOSE, URINE (UA) NEGATIVE (NEGATIVE); KETONES,URINE (UA) NEGATIVE (NEGATIVE); LEUKOCYTE ESTERASE, URINE SMALL (NEGATIVE); NITRITE,URINE NEGATIVE (NEGATIVE); OCCULT BLOOD,URINE SMALL (NEGATIVE); PROTEIN,URINE TRACE mg/dL (NEGATIVE); UROBILINOGEN,URINE 0.2 (NORMAL) E.U./dL (NORMAL)
[2019-12-17 21:09] LABS: CLARITY,URINE CLOUDY (CLEAR)
[2019-12-17 21:21] LABS: AMORPHOUS SEDIMENT,UR Few /LPF; AMPHETAMINE SCREEN,URINE POSITIVE (NEGATIVE); BACTERIA,URINE Many /HPF (None Seen); BENZODIAZEPINES SCREEN, URINE NEGATIVE (NEGATIVE); COCAINE SCREEN URINE NEGATIVE (NEGATIVE); METHADONE SCREEN, URINE NEGATIVE (NEGATIVE); METHAMPHETAMINES SCREEN, URINE POSITIVE (NEGATIVE); OPIATE SCREEN, URINE POSITIVE (NEGATIVE); OXYCODONE SCREEN, URINE POSITIVE (NEGATIVE); SQUAMOUS EPITHELIAL CELL,UR NONE SEEN (<= Few); TRICYCLIC ANTIDEPRESSANT,URINE NEGATIVE (NEGATIVE)
[2019-12-17 21:22] LABS: PROPOXYPHENE SCREEN, URINE NEGATIVE (NEGATIVE)
[2019-12-17 23:12] LABS: CALCIUM 8.8 mg/dL (8.5-10.3); CREATININE 4.1 mg/dL (0.6-1.2)
[2019-12-18] MEDS: SODIUM CHLORIDE FLUSH 0.9% 10 ML SYRINGE IVP SCH ×3 (00:10→17:46)
[2019-12-18] MEDS: HYDROmorphone 0.5 MG/0.5 ML SYRINGE IVP PRN ×2 (00:10→03:25)
[2019-12-18] MEDS: SODIUM CHLORIDE 0.9% 1,000 ML IV SCH ×2 (00:11→08:31)
[2019-12-18] MEDS: SODIUM CHLORIDE FLUSH 0.9% 10 ML SYRINGE IVP PRN ×3 (03:25→22:07)
[2019-12-18 05:48] LABS: BASOPHILS # (AUTO) 0.1 10^3/uL (0.0-0.1); BASOPHILS % (AUTO) 0.2 %; HGB - HEMOGLOBIN 8.3 g/dL (14.0-18.0); LYMPHOCYTES # (AUTO) 0.3 10^3/uL (1.5-3.5); MEAN CORPUSCULAR HEMOGLOBIN 26.3 pg (27.0-31.0); MEAN CORPUSCULAR HGB CONC 31.9 g/dL (32.0-36.0); MEAN CORPUSCULAR VOLUME 82.5 fL (80.0-94.0); MEAN PLATELET VOLUME 9.4 fL (7.4-11.4); MONOCYTES # (AUTO) 1.2 10^3/uL (0.0-1.0); MONOCYTES % (AUTO) 4.2 %; NEUTROPHILS # (AUTO) 26.4 10^3/uL (1.5-6.6); NEUTROPHILS % (AUTO) 93.3 %; PLT - PLATELET COUNT 455 10^3/uL (130-450); RED BLOOD COUNT 3.15 10^6/uL (4.70-6.10); RED CELL DISTRIBUTION WIDTH 16.7 % (12.0-15.0); WHITE BLOOD COUNT 28.3 x10^3/uL (4.8-10.8)
[2019-12-18 06:09] LABS: CALCIUM 8.7 mg/dL (8.5-10.3); CREATININE 3.6 mg/dL (0.6-1.2)
[2019-12-18] MEDS: MORPHINE SULFATE ER 30 MG TABLET PO SCH ×3 (06:22→20:53)
[2019-12-18] MEDS: HALOPERIDOL 5 MG/ML VIAL IVP PRN ×3 (07:58→22:06)
[2019-12-18] MEDS ORDERED: LIDOCAINE 2% URO-JET 5 ML SYRINGE UR ONE (08:04)
[2019-12-18] MEDS ORDERED: polyethylene glycoL 3350 17 GM PACKET PO PRN (10:56)
[2019-12-18] MEDS ORDERED: SODIUM POLYSTYRENE SULFONATE 15 GM/60 ML BOTTLE PO ONE (10:57)
[2019-12-18] MEDS ORDERED: cefTRIAXone 1 GM in SODIUM CHLORIDE 0.9% MINIBAG 100 ML IV SCH (11:00)
--- NOTE | 2019-12-18 11:54 | PROVIDER PROGRESS NOTE ---
Subjective - Prog Note Date Prog Note Date: 12/18/19 Prog Note Time: 11:42 - Subjective Subjective: Today, pt is sleeping and did not rouse with gentle stimulation. He was given IV Haldol 1mg x 1 at 8AM prior to my exam. Pt straight catheterizes at home, so Dove placed today after Haldol per pt and 's decision. at bedside reports since last night, pt has been intermittently agitated and with continued abdominal pain prior to falling asleep. Discussed with today regarding goals of care--she wishes to continue selective treatment of hyponatremia, UTI, and hyperkalemia for at least another 24 hours to see if degree of improvement and then readdress again tomorrow. Still wishes for pt's comfort to be considered and treated PRN significant discomfort during this period of time. Current Medications - Current Medications Current Medications: Acetaminophen (Tylenol) 650 mg PO Q4HR PRN PRN Reason: Pain 1 to 4 Lipase/Protease/Amylase (Pancrelipase Dr 5,000/17,000/27,000 [facility]) 2 cap PO TIDWM [facility] Last Admin: 12/17/19 16:07 Dose: 2 cap Carboxymethylcellulose (Refresh 1% Ophth Drops) 1 drops EACHEYE PRN PRN PRN Reason: Dry Eye Gabapentin (Neurontin) 300 mg PO BID [facility] Last Admin: 12/17/19 20:14 Dose: Not Given Haloperidol (Haldol Inj) 1 mg IVP Q2H PRN PRN Reason: See label comments Last Admin: 12/18/19 07:58 Dose: 1 mg Haloperidol (Haldol Oral Soln) 5 mg SL Q30M PRN PRN Reason: See label comments Hydromorphone HCl (Dilaudid Inj Syringe) 0.5 mg IVP Q2H PRN PRN Reason: Pain 8 to 10 Last Admin: 12/18/19 03:25 Dose: 0.5 mg Sodium Chloride (Normal Saline 0.9%) 1,000 mls @ 125 mls/hr IV .Q8H [facility] Last Admin: 12/18/19 08:31 Dose: 125 mls/hr Ceftriaxone Sodium 1 gm/ (Sodium Chloride) 100 mls @ 200 mls/hr IV DAILY [facility] Last Admin: 12/18/19 11:13 Dose: 200 mls/hr Lorazepam (Ativan) 1 mg PO Q4HR PRN PRN Reason: See label comments Last Admin: 12/17/19 18:07 Dose: 1 mg Morphine Sulfate (Ms Contin) 60 mg PO Q8H [facility] Last Admin: 12/18/19 06:22 Dose: 60 mg Ondansetron HCl (Zofran Inj) 4 mg IVP Q6HR PRN PRN Reason: Nausea / Vomiting Ondansetron HCl (Zofran Odt) 4 mg TL Q6HR PRN PRN Reason: Nausea / Vomiting Oxycodone HCl (Roxicodone) 5 mg PO Q4HR PRN PRN Reason: Pain 5 to 7 Polyethylene Glycol (Miralax) 17 gm PO DAILY PRN PRN Reason: Bowel Protocol Polyethylene Glycol (Miralax) 17 gm PO ONCE [facility] Stop: 12/18/19 16:00 Senna (Senokot) 8.6 - 17.2 mg PO DAILY [facility] Sodium Chloride (Normal Saline Flush 0.9%) 10 ml IVP PRN PRN PRN Reason: NEEDED PER PROVIDER ORDERS Last Admin: 12/18/19 05:07 Dose: 30 ml Sodium Chloride (Normal Saline Flush 0.9%) 10 ml IVP 0100,0900,1700 [facility] Last Admin: 12/18/19 07:58 Dose: 10 ml Temazepam (Restoril) 15 - 30 mg PO QPM PRN PRN Reason: Insomnia Objective - Vital Signs/Intake & Output Vital Signs: Vital Signs x48h Pulse Resp BP Pulse Ox 12/18/19 08:00 114 H 16 84/55 L 93 Intake & Output: Intake & Output 12/15/19 12/16/19 12/17/19 12/18/19 23:59 23:59 23:59 23:59 Intake Total 645 1785 Output Total 1700 225 Balance -1055 1560 - Objective General Appearance: positive: Lethargic, Other (Cachexia) Eyes Bilateral: positive: No scleral icterus Respiratory: positive: No respiratory distress, Breath sounds nml Cardiovascular: positive: Tachycardia Abdomen: positive: Tenderness, Other (Mild tenderness with light palpation, no guarding. +Ostomy bag filled with air, +Cholecystostomy in place-site appears c/d/i) Extremities: positive: No pedal edema Neurologic/Psychiatric: positive: Other (Currently asleep) - Lab Results Fish Bones: 12/18/19 05:12 12/18/19 05:12 Other Labs: Lab Results x24hrs 12/18/19 12/18/19 12/17/19 Range/Units 05:12 05:12 22:44 WBC 28.3 H (4.8-10.8) x10^3/uL RBC 3.15 L (4.70-6.10) 10^6/uL Hgb 8.3 L (14.0-18.0) g/dL Hct 26.0 L (42.0-52.0) % MCV 82.5 (80.0-94.0) fL MCH 26.3 L (27.0-31.0) pg MCHC 31.9 L (32.0-36.0) g/dL RDW 16.7 H (12.0-15.0) % Plt Count 455 H (130-450) 10^3/uL MPV 9.4 (7.4-11.4) fL Neut # (Auto) 26.4 H (1.5-6.6) 10^3/uL Lymph # (Auto) 0.3 L (1.5-3.5) 10^3/uL [place] # (Auto) 1.2 H (0.0-1.0) 10^3/uL Eos # (Auto) 0.0 (0.0-0.7) 10^3/uL Baso # (Auto) 0.1 (0.0-0.1) 10^3/uL Absolute Nucleated RBC 0.00 x10^3/uL Nucleated RBC % 0.0 /100WBC Manual Slide Review Platelet Estimate (NORMAL) RBC Morph Micro Appear (NORMAL) Sodium 124 L 120 L* (135-145) mmol/L Potassium 5.4 H 5.5 H (3.5-5.0) mmol/L Chloride 83 L 78 L* (101-111) mmol/L Carbon Dioxide 24 25 (21-32) mmol/L Anion Gap 17.0 H 17.0 H (6-13) BUN 141 H* 142 H* (6-20) mg/dL Creatinine 3.6 H 4.1 H (0.6-1.2) mg/dL Estimated GFR (MDRD) 18 L 15 L (>89) Glucose 109 H 123 H (70-100) mg/dL Lactic Acid (0.5-2.2) mmol/L Calcium 8.7 8.8 (8.5-10.3) mg/dL Total Bilirubin (0.2-1.0) mg/dL AST (10-42) IU/L ALT (10-60) IU/L Alkaline Phosphatase (42-121) IU/L Total Protein (6.7-8.2) g/dL Albumin (3.2-5.5) g/dL Globulin (2.1-4.2) g/dL Albumin/Globulin Ratio (1.0-2.2) Lipase (22-51) U/L Urine Color Urine Clarity (CLEAR) Urine pH (5.0-7.5) PH Ur Specific [place] (1.002-1.030) Urine Protein (NEGATIVE) mg/dL Urine Glucose (UA) (NEGATIVE) mg/dL Urine Ketones (NEGATIVE) mg/dL Urine Occult Blood (NEGATIVE) Urine Nitrite (NEGATIVE) Urine Bilirubin (NEGATIVE) Urine Urobilinogen (NORMAL) E.U./dL Ur Leukocyte Esterase (NEGATIVE) Urine RBC (0-5) /HPF Urine WBC (0-3) /HPF Ur Squamous Epith Cells (<= Few) Amorphous Sediment /LPF Urine Bacteria (None Seen) /HPF Urine Culture Comments Urine Opiates Screen (NEGATIVE) Ur Oxycodone Screen (NEGATIVE) Urine Methadone Screen (NEGATIVE) Ur Propoxyphene Screen (NEGATIVE) Ur Barbiturates Screen (NEGATIVE) Ur Tricyclics Screen (NEGATIVE) Ur Phencyclidine Scrn (NEGATIVE) Ur Amphetamine Screen (NEGATIVE) U Methamphetamines Scrn (NEGATIVE) U Benzodiazepines Scrn (NEGATIVE) Urine Cocaine Screen (NEGATIVE) U Cannabinoids Screen (NEGATIVE) 12/17/19 12/17/19 12/17/19 Range/Units 21:00 17:53 15:40 WBC (4.8-10.8) x10^3/uL RBC (4.70-6.10) 10^6/uL Hgb (14.0-18.0) g/dL Hct (42.0-52.0) % MCV (80.0-94.0) fL MCH (27.0-31.0) pg MCHC (32.0-36.0) g/dL RDW (12.0-15.0) % Plt Count (130-450) 10^3/uL MPV (7.4-11.4) fL Neut # (Auto) (1.5-6.6) 10^3/uL Lymph # (Auto) (1.5-3.5) 10^3/uL [place] # (Auto) (0.0-1.0) 10^3/uL Eos # (Auto) (0.0-0.7) 10^3/uL Baso # (Auto) (0.0-0.1) 10^3/uL Absolute Nucleated RBC x10^3/uL Nucleated RBC % /100WBC Manual Slide Review Platelet Estimate (NORMAL) RBC Morph Micro Appear (NORMAL) Sodium 120 L* (135-145) mmol/L Potassium 5.8 H (3.5-5.0) mmol/L Chloride 76 L* (101-111) mmol/L Carbon Dioxide 24 (21-32) mmol/L Anion Gap 20.0 H (6-13) BUN 111 H* (6-20) mg/dL Creatinine 4.4 H (0.6-1.2) mg/dL Estimated GFR (MDRD) 14 L (>89) Glucose 158 H (70-100) mg/dL Lactic Acid (0.5-2.2) mmol/L Calcium 9.1 (8.5-10.3) mg/dL Total Bilirubin (0.2-1.0) mg/dL AST (10-42) IU/L ALT (10-60) IU/L Alkaline Phosphatase (42-121) IU/L Total Protein (6.7-8.2) g/dL Albumin (3.2-5.5) g/dL Globulin (2.1-4.2) g/dL Albumin/Globulin Ratio (1.0-2.2) Lipase 68 H (22-51) U/L Urine Color YELLOW Urine Clarity CLOUDY (CLEAR) Urine pH 5.0 (5.0-7.5) PH Ur Specific [place] 1.025 (1.002-1.030) Urine Protein TRACE (NEGATIVE) mg/dL Urine Glucose (UA) NEGATIVE (NEGATIVE) mg/dL Urine Ketones NEGATIVE (NEGATIVE) mg/dL Urine Occult Blood SMALL H (NEGATIVE) Urine Nitrite NEGATIVE (NEGATIVE) Urine Bilirubin NEGATIVE (NEGATIVE) Urine Urobilinogen 0.2 (NORMAL) (NORMAL) E.U./dL Ur Leukocyte Esterase SMALL H (NEGATIVE) Urine RBC 6-10 H (0-5) /HPF Urine WBC >25 H (0-3) /HPF Ur Squamous Epith Cells NONE SEEN (<= Few) Amorphous Sediment Few /LPF Urine Bacteria Many H (None Seen) /HPF Urine Culture Comments INDICATED Urine Opiates Screen POSITIVE H (NEGATIVE) Ur Oxycodone Screen POSITIVE H (NEGATIVE) Urine Methadone Screen NEGATIVE (NEGATIVE) Ur Propoxyphene Screen NEGATIVE (NEGATIVE) Ur Barbiturates Screen NEGATIVE (NEGATIVE) Ur Tricyclics Screen NEGATIVE (NEGATIVE) Ur Phencyclidine Scrn NEGATIVE (NEGATIVE) Ur Amphetamine Screen POSITIVE H (NEGATIVE) U Methamphetamines Scrn POSITIVE H (NEGATIVE) U Benzodiazepines Scrn NEGATIVE (NEGATIVE) Urine Cocaine Screen NEGATIVE (NEGATIVE) U Cannabinoids Screen NEGATIVE (NEGATIVE) 12/17/19 12/17/19 12/17/19 Range/Units 15:40 13:30 13:30 WBC 25.4 H (4.8-10.8) x10^3/uL RBC 3.66 L (4.70-6.10) 10^6/uL Hgb 9.8 L (14.0-18.0) g/dL Hct 30.8 L (42.0-52.0) % MCV 84.2 (80.0-94.0) fL MCH 26.8 L (27.0-31.0) pg MCHC 31.8 L (32.0-36.0) g/dL RDW 16.7 H (12.0-15.0) % Plt Count 521 H (130-450) 10^3/uL MPV 9.6 (7.4-11.4) fL Neut # (Auto) 23.7 H (1.5-6.6) 10^3/uL Lymph # (Auto) 0.3 L (1.5-3.5) 10^3/uL [place] # (Auto) 1.0 (0.0-1.0) 10^3/uL Eos # (Auto) 0.0 (0.0-0.7) 10^3/uL Baso # (Auto) 0.1 (0.0-0.1) 10^3/uL Absolute Nucleated RBC 0.00 x10^3/uL Nucleated RBC % 0.0 /100WBC Manual Slide Review Indicated Platelet Estimate INCREASED (>450,000) (NORMAL) RBC Morph Micro Appear 3+ ANISOCYTOSIS (NORMAL) Sodium 122 L (135-145) mmol/L Potassium 5.9 H (3.5-5.0) mmol/L Chloride 76 L* (101-111) mmol/L Carbon Dioxide 23 (21-32) mmol/L Anion Gap 23.0 H (6-13) BUN 152 H* (6-20) mg/dL Creatinine 4.8 H (0.6-1.2) mg/dL Estimated GFR (MDRD) 13 L (>89) Glucose 153 H (70-100) mg/dL Lactic Acid 1.0 (0.5-2.2) mmol/L Calcium 9.7 (8.5-10.3) mg/dL Total Bilirubin 0.8 (0.2-1.0) mg/dL AST 23 (10-42) IU/L ALT 24 (10-60) IU/L Alkaline Phosphatase 138 H (42-121) IU/L Total Protein 8.6 H (6.7-8.2) g/dL Albumin 3.4 (3.2-5.5) g/dL Globulin 5.2 H (2.1-4.2) g/dL Albumin/Globulin Ratio 0.7 L (1.0-2.2) Lipase (22-51) U/L Urine Color Urine Clarity (CLEAR) Urine pH (5.0-7.5) PH Ur Specific [place] (1.002-1.030) Urine Protein (NEGATIVE) mg/dL Urine Glucose (UA) (NEGATIVE) mg/dL Urine Ketones (NEGATIVE) mg/dL Urine Occult Blood (NEGATIVE) Urine Nitrite (NEGATIVE) Urine Bilirubin (NEGATIVE) Urine Urobilinogen (NORMAL) E.U./dL Ur Leukocyte Esterase (NEGATIVE) Urine RBC (0-5) /HPF Urine WBC (0-3) /HPF Ur Squamous Epith Cells (<= Few) Amorphous Sediment /LPF Urine Bacteria (None Seen) /HPF Urine Culture Comments Urine Opiates Screen (NEGATIVE) Ur Oxycodone Screen (NEGATIVE) Urine Methadone Screen (NEGATIVE) Ur Propoxyphene Screen (NEGATIVE) Ur Barbiturates Screen (NEGATIVE) Ur Tricyclics Screen (NEGATIVE) Ur Phencyclidine Scrn (NEGATIVE) Ur Amphetamine Screen (NEGATIVE) U Methamphetamines Scrn (NEGATIVE) U Benzodiazepines Scrn (NEGATIVE) Urine Cocaine Screen (NEGATIVE) U Cannabinoids Screen (NEGATIVE) - Diagnostic Imaging Diagnostic Imaging Results: positive: Final report reviewed, See rad report Diagnostic Imaging Comments: Personally reviewed imaging -- agree with CT AP without contrast radiologist report ABX Reporting Has patient been on IV antibiotics over the past 48 hours?: Yes Sepsis Event Note (H) - Evaluation Current Stage of Sepsis: Severe sepsis Confirmed Source and Organism (if known) of Sepsis: UTI, pending urine culture Sepsis Associated Organ Dysfunction: Acute kidney injury, acute encephalopathy - Sepsis Criteria Sepsis Criteria: Recorded Heart Rate greater than 90 bpm, WBC count greater than 12,000 or less than 4000, [employer]IV[employer]ED[employer] OFFICER: altered consciousness (unrelated to primary neuro pathology), MAP less than 65 mmHg Assessment/Plan - Problem List (1) Hyponatremia Impression: Severe with admit Na 122, which worsened to 120 so normal saline was increased. Minimally improved 12/17 to 124. Suspect due to hypovolemia due to decreased PO intake. Suspect contributing to generalized weakness and acute encephalopathy Plan: -Continue IV fluids with NS at 125cc/hr -Serial Na q8, and recheck BMP in AM (2) Acute kidney injury Impression: Admit Cr 4.8. Suspect due to hypovolemia from minimal PO intake. Improved today. Cr 1.5 on 12/07/2019 and Cr 0.7 in Jun 2019 on chart review. Stable left hy dronephrosis seen on CT AP compared to prior CT scan. Plan: -Continue IV fluids with NS -Check CK (3) Hyperkalemia Impression: Due to LOLA. Admit K 5.9, improved Plan: -Status post kayexalate 30gm on 12/16. Repeat kayexalate 15gm today with Senna and Miralax -Monitor K -IVF for LOLA as above (4) Increased anion gap metabolic acidosis Impression: Suspect due to LOLA. UA negative for ketones, lactate normal. Improving Plan: -Treatment of LOLA as above -Monitor AG (5) Acute metabolic encephalopathy Impression: reports mild confusion prior to admission. Intermittently agitated here. Suspect multifactorial due to hyponatremia, hyperkalemia, UTI, uremia, and presumed recent meth use (Utox +meth) Plan: -IV Haldol and IV Ativan PRN -Treatment of underlying causes with IVF and IV antibiotics (6) Severe sepsis Impression: Severe as associated with LOLA, hypotension, and acute encephalopathy. Sepsis (leukocytosis, bandemia, tachycardia) due to UTI identified at 11:00AM on 12/17. Plan: -Start empiric ceftriaxone. F/U urine culture -IVF -Recheck lactate (7) Urinary tract infection Impression: Present on admission. Higher risk as pt with chronic urinary retention and self catheterizes at home Plan: -Start empiric IV ceftriaxone -F/U urine culture Qualifiers: Urinary tract infection type: acute cystitis Hematuria presence: with hematuria Qualified Code(s): N30.01 - Acute cystitis with hematuria (8) Metastatic sarcoma Impression: Status post chemotherapy and radiation. No further treatment options per 's report. Appears that hospice has been recommended by PCP and/or oncologist Plan: -Hospice referral placed -Readdress goals of care with after another 24 hours of selective treatment including IV fluids, IV antibiotics, and kayexalate. Pt and are open to idea of transitioning to comfort care -Continue DNR/DNI -Obtain records from [facility] [place] filled out with today (9) Pelvic mass in male Impression: Plan: Refer to #8 (10) Cancer-related pain Impression: Significant and persistent despite PO home opiate regimen per pt and report Plan: -Continue home regimen of MS Contin q8, PRN oxycodone, and gabapentin -IV Dilaudid PRN. -Per discussion with , her eventual priority is comfort so comfort care medications ordered but wishes to pursue selective treatment for another 24 hours to see if significant improvement in his generalized weakness and mental status (11) Methamphetamine abuse Impression: Urine drug screen +methamphetamine. 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 Suspect due pancreatic head metastatic lesion Plan: -Continue routine cholecystostomy care (14) Pancreatic mass Impression: Metastatic disease of pancreas. Demonstrated on CT AP without contrast Plan: -Continue pancrelipase (15) Urinary retention Impression: Chronic as pt self catheterizes at home. Suspect due to mechanical obstruction from pelvic mass Plan: -Place Dove catheter as pt and agreeable (16) Lumbar radiculopathy Impression: Suspect related to mechanical compression from large pelvic mass Plan: -Continue home gabapentin (17) History of alcoholism Impression: Noted. Only occasional use for at least 6 months per
[2019-12-18] MEDS ORDERED: polyethylene glycoL 3350 17 GM PACKET PO SCH (12:00)
[2019-12-18] MEDS: LIPASE/PROTEASE/AMYLASE CAPSULE PO SCH ×3 (12:07→18:11)
[2019-12-18] MEDS: GABAPENTIN 300 MG CAPSULE PO SCH ×2 (14:07→20:53)
[2019-12-18] MEDS: SENNA 8.6 MG TABLET PO SCH (14:07)
[2019-12-18] MEDS ORDERED: DEXTROSE 5%-0.45% NACL 500 ML IV ONE (17:00)
--- NOTE | 2019-12-18 19:00 | ADVANCE CARE PLANNING NOTE ---
Advance Care Planning - Planning Encounter Date: 12/18/19 Time: 17:15 Purpose: Goals of care determination Parties in Attendance: , patient, and myself Decisional Capacity of the Patient: Poor due to sedation - Diagnosis for Encounter (1) Hyponatremia Summary: Severe with admit Na 122, which worsened to 120 so normal saline was increased. Minimally improved 12/17 to 124. Suspect due to hypovolemia due to decreased PO intake. Suspect contributing to generalized weakness and acute encephalopathy (2) Acute kidney injury Summary: Admit Cr 4.8. Suspect due to hypovolemia from minimal PO intake. Improved today. Cr 1.5 on 12/07/2019 and Cr 0.7 in Jun 2019 on chart review. Stable left hydronephrosis seen on CT AP compared to prior CT scan. (3) Hyperkalemia Summary: Due to LOLA. Admit K 5.9, improved (4) Increased anion gap metabolic acidosis Summary: Suspect due to LOLA. UA negative for ketones, lactate normal. Improving (5) Acute metabolic encephalopathy Summary: reports mild confusion prior to admission. Intermittently agitated here. Suspect multifactorial due to hyponatremia, hyperkalemia, UTI, uremia, and presumed recent meth use (Utox +meth) (6) Severe sepsis Summary: Severe as associated with LOLA, hypotension, and acute encephalopathy. Sepsis (leukocytosis, bandemia, tachycardia) due to UTI identified at 11:00AM on 12/17. (7) Urinary tract infection Qualifiers: Urinary tract infection type: acute cystitis Hematuria presence: with hematuria Qualified Code(s): N30.01 - Acute cystitis with hematuria Summary: Present on admission. 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 No further treatment options per 's report. Appears that hospice has been recommended by PCP and/or oncologist (10) Cancer-related pain Summary: Significant and persistent despite PO home opiate regimen per pt and report (11) Methamphetamine abuse Summary: Urine drug screen +methamphetamine. 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 Suspect due pancreatic head metastatic lesion (14) Pancreatic mass Summary: Metastatic disease of pancreas. Demonstrated on CT AP without contrast (15) Urinary retention Summary: Chronic as pt self catheterizes at home. Suspect due to mechanical obstruction from pelvic mass (16) Lumbar radiculopathy Summary: Suspect related to mechanical compression from large pelvic mass - Encounter Subjective/Patient's Story: Pt was adopted. is pt's main support system. Weight loss began in October 2018. 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 Main care has been at [facility]. Treatment has included cholecystostomy tube for biliary obstruction from pancreatic head mass, ostomy bag, chemotherapy, and radiation. No further treatment options from oncologists and was given hospice referral per . Labs drawn few days ago showing LOLA, hyponatremia, and hyperkalemia. On admission, wished for selective treatment with IVF, blood tests, imaging antibiotics, and medications, for these conditions in hopes of pt's improvement. Today, pt with persistent hypotension with SBP 80s, somnolent, and with very minimal PO intake. Goals of Care: DNR/DNI No artificial nutrition No ICU care No procedures or surgeries OK with IV fluids, antibiotics, blood tests, and medications Plan: 500cc D5 1/2 NS bolus for hypotension NS was stopped due to overcorrection for hyponatremia earlier today Continue serial sodium monitoring Convert to comfort care status only as early as tonight if pt further declines. is OK to discontinue IV fluids and antibiotics if/when this transition occurs Code Status: Do Not Attempt Resuscitation Time spent on advance care plannin minutes
[2019-12-18] MEDS ORDERED: SODIUM CHLORIDE FLUSH 0.9% 10 ML SYRINGE IVP PRN (23:15)
[2019-12-19] MEDS: SODIUM CHLORIDE FLUSH 0.9% 10 ML SYRINGE IVP SCH ×3 (00:21→17:58)
[2019-12-19] MEDS: HALOPERIDOL 5 MG/ML VIAL IVP PRN (00:21)
[2019-12-19] MEDS: SODIUM CHLORIDE FLUSH 0.9% 10 ML SYRINGE IVP PRN ×2 (00:21→07:55)
--- NOTE | 2019-12-19 00:55 | PROVIDER PROGRESS NOTE ---
Doula Note - Doula Note Doula Note: Patient has become increasingly hypoxic overnight. He was initially was on 1L of oxygen but desaturated into the high 70's. This improved only to mid 80's despite increasing his oxygenation to 12L via nasal cannula. His current condition was discussed with his . We discussed that we could obtain a chest x-ray and consider different treatment options based on its findings. The patient reports feeling comfortable and denies dyspnea. His would just like to focus on his comfort at this point in time. I discuss with RT that the goal is to provide him with the most amount of oxygen via an apparatus that he will tolerate and is comfortable. I will start him on a scopolamine patch given his secretions. We will discontinue all medications except those necessary for comfort.
[2019-12-19] MEDS ORDERED: SCOPOLAMINE PATCH TOP SCH (01:00)
[2019-12-19] MEDS: MORPHINE SULFATE ER 30 MG TABLET PO SCH ×2 (07:13→15:41)
--- NOTE | 2019-12-19 07:30 | PROVIDER PROGRESS NOTE ---
Subjective - Prog Note Date Prog Note Date: 12/19/19 Prog Note Time: 08:33 - Subjective Subjective: he is lethargic but upright in bed. thirsty. asking for cranberry juice for him. notes read and he is comfort measures only. Current Medications - Current Medications Current Medications: Active Medications Acetaminophen (Tylenol) 650 mg PO Q4HR PRN PRN Reason: Pain 1 to 4 Carboxymethylcellulose (Refresh 1% Ophth Drops) 1 drops EACHEYE PRN PRN PRN Reason: Dry Eye Haloperidol (Haldol Inj) 1 mg IVP Q2H PRN PRN Reason: See label comments Last Admin: 12/19/19 00:21 Dose: 1 mg Haloperidol (Haldol Oral Soln) 5 mg SL Q30M PRN PRN Reason: See label comments Lorazepam (Ativan Inj (Vial)) 1 mg IVP Q4H PRN PRN Reason: Anxiety Morphine Sulfate (Ms Contin) 60 mg PO Q8H ON LICENSE OF [facility] Last Admin: 12/19/19 07:13 Dose: Not Given Morphine Sulfate (Morphine (Carpuject)) 2 mg IVP Q1HR PRN PRN Reason: PAIN Ondansetron HCl (Zofran Inj) 4 mg IVP Q6HR PRN PRN Reason: Nausea / Vomiting Ondansetron HCl (Zofran Odt) 4 mg TL Q6HR PRN PRN Reason: Nausea / Vomiting Oxycodone HCl (Roxicodone) 5 mg PO Q4HR PRN PRN Reason: Pain 5 to 7 Polyethylene Glycol (Miralax) 17 gm PO DAILY PRN PRN Reason: Bowel Protocol Scopolamine HBr (Transderm-Scop) 1 patch TOP Q3D ON LICENSE OF [facility] Last Admin: 12/19/19 00:53 Dose: 1 patch Senna (Senokot) 8.6 - 17.2 mg PO DAILY ON LICENSE OF [facility] Last Admin: 12/18/19 14:07 Dose: 8.6 mg Sodium Chloride (Normal Saline Flush 0.9%) 10 ml IVP PRN PRN PRN Reason: NEEDED PER PROVIDER ORDERS Last Admin: 12/19/19 00:21 Dose: 10 ml Sodium Chloride (Normal Saline Flush 0.9%) 10 ml IVP 0100,0900,1700 ON LICENSE OF [facility] Last Admin: 12/19/19 00:21 Dose: 10 ml Sodium Chloride (Normal Saline Flush 0.9%) 20 ml IVP PRN PRN PRN Reason: After Blood Draw Temazepam (Restoril) 15 - 30 mg PO QPM PRN PRN Reason: Insomnia Morphine Sulfate 60 mg PO BID 03/28/19 Oxycodone HCl [Roxicodone] 15 - 30 mg PO Q3H PRN 03/28/19 Gabapentin 300 mg PO BID 12/17/19 Lipase/Protease/Amylase [Isaura Chua 24,000 Units Capsule] 1 cap PO TIDWM 12/17/19 Objective - Vital Signs/Intake & Output Reviewed Vital Signs: Yes Vital Signs: Vital Signs x48h Temp Pulse Resp BP Pulse Ox 12/19/19 00:35 120 H 20 87 L 12/19/19 00:00 36.7 C 123 H 20 95/56 L 87 L Intake & Output: Intake & Output 12/16/19 12/17/19 12/18/19 12/19/19 23:59 23:59 23:59 23:59 Intake Total 645 3185 Output Total 1700 2100 705 Balance -1055 1085 -705 - Objective General Appearance: positive: No acute distress, Other (severely cachectic, eyes glazed, sitting upright, at bedside feeding him small bites) Eyes Bilateral: positive: PERRL Eyes: OU Scleral icterus ENT: positive: Dry mucous membranes Neck: positive: No JVD Respiratory: positive: Other (slow, unlabored) Cardiovascular: positive: Regular rate & rhythm, Systolic murmur. negative: Gallop/S4, Friction rub Abdomen: positive: Tenderness (mild and generalized), Abnml bowel sounds (hypoactive), Other (LUQ mass like effect). negative: Guarding, Rebound Skin: positive: Warm, Dry, Other (jaundiced appearing in spite of no elevated bili) Neurologic/Psychiatric: positive: CN's nml (2-12), Motor nml, Disoriented to time, Weakness (severe) - Lab Results Fish Bones: 12/18/19 05:12 12/18/19 20:05 Other Labs: Lab Results x24hrs 12/18/19 12/18/19 12/18/19 Range/Units 20:05 14:00 11:59 Sodium 129 L (135-145) mmol/L Lactic Acid 0.5 (0.5-2.2) mmol/L Total Creatine Kinase 73 (22-269) IU/L 12/18/19 Range/Units 11:59 Sodium 133 L (135-145) mmol/L Lactic Acid (0.5-2.2) mmol/L Total Creatine Kinase (22-269) IU/L ABX Reporting Has patient been on IV antibiotics over the past 48 hours?: Yes Sepsis Event Note (H) - Evaluation Current Stage of Sepsis: Severe sepsis - Sepsis Criteria Sepsis Criteria: Recorded Heart Rate greater than 90 bpm, WBC count greater than 12,000 or less than 4000, INSOLE AND OUTSOLE SPLITTER: altered consciousness (unrelated to primary neuro pathology), MAP less than 65 mmHg Assessment/Plan - Problem List (1) Sarcoma metastatic to soft tissue Impression: 54-year-old white male who has sarcoma that has been metastatic to pancreas, lungs. He is followed by [facility] and has had radiation, chemotherapy, colostomy and cholecystostomy tube. He presented to our emergency room with progressive generalized weakness, falls, and anorexia and cachexia. Those acutely worsened in the days prior to this admission. He has no further treatment options for his cancer. They were to meet with the hospice nurse on December 19 when his acute weakness was too severe for him to remain at home. He is also in severe pain. He was being treated for his electrolyte disturbance, pain, dehydration with acute kidney injury, metabolic acidosis, hyperkalemia for the last 24 hours. is asked us to transition him to comfort measures only when he took a turn for the worse last night and was requiring more and more oxygen. He is imminently dying. We are making him comfortable and expect in the next 2 to 3 days. (2) Cancer-related pain Impression: Patient is on oral MS Contin, as well as IV morphine. As long as he can maintain p.o. intake we will continue to do that. Once he is no longer to take that, we will transition him to Roxanol drops or morphine drip depending on his pain.
[2019-12-19] MEDS: MORPHINE 2 MG/ML CARPUJECT IVP PRN ×2 (07:53→09:38)
[2019-12-19] MEDS: LORazepam 2 MG/ML VIAL IVP PRN ×2 (09:39→17:57)
[2019-12-19] MEDS: SENNA 8.6 MG TABLET PO SCH (15:41)
[2019-12-19] MEDS ORDERED: MORPHINE SOL 10 MG/0.5 ML SYRINGE PO PRN (18:18)
[2019-12-20] MEDS: LORazepam 2 MG/ML VIAL IVP PRN ×5 (00:23→21:37)
[2019-12-20] MEDS: SODIUM CHLORIDE FLUSH 0.9% 10 ML SYRINGE IVP SCH ×3 (00:23→16:20)
[2019-12-20] MEDS: MORPHINE 2 MG/ML CARPUJECT IVP PRN ×5 (05:27→18:25)
[2019-12-20] MEDS: SENNA 8.6 MG TABLET PO SCH (09:20)
--- NOTE | 2019-12-20 11:46 | PROVIDER PROGRESS NOTE ---
Assessment/Plan - Problem List (1) Need for comfort care Assessment/Plan: The and I spoke at his bedside: the patient wants to go home. The thinks he will need a caregiver to get him OOB and for repositioning and also colostomy changes. I informed her that he is failing so quickly, that he may be come comatose ion a few days, which she understood. I told her that he may not need all that type of care when he is comatose. She then had questions regarding transition from Comfort Care to End of Life Care, and said that there was originally a Hospice meeting to be done today at 10 a.m. at her home. The SW told me that the Hospice consult was cancelled when the was told that Hospice only comes to the house several times a week. I will re-order a Hospice Consult to meet with the and answer her questions regarding transitions of care. I informed SW, who will contact Hospice. Continue Comfort Care orders here. He may be imminently dying in 2-3 days. (2) Metastatic sarcoma Assessment/Plan: He had pelvic mass metastatic to pancreas and lungs status post chemotherapy and radiation, colostomy, and cholecystostomy tube, presented to ED with few days of progressive and acute generalized weakness, falls, and worsened anorexia. He reported constant and uncontrolled pain "everywhere." reports pt has been mildly confused and so weak in his arms and legs with falls at home recently. Pt was able to ambulate independently about 5 days ago. Pt has gotten nauseous if cholecystostomy gets clogged. The told me he needs care for his ostomies, and c are, as in #1. Transition to Hospice is the plan. - Current Meds Current Meds: Current Medications Generic Name Dose Route Start Last Admin Trade Name Freq PRN Reason Stop Dose Admin Haloperidol 1 mg 12/17/19 13:22 12/19/19 00:21 Haldol Inj IVP 1 mg Q2H PRN Administration See label comments Heparin Sodium (Beef Lung) 30 - 50 unit 12/19/19 15:52 12/19/19 17:58 IVP 50 unit Q8HR PRN Administration PER HEPARIN PROTOCOL Lorazepam 1 mg 12/19/19 00:28 12/20/19 10:00 Ativan Inj (Vial) IVP 1 mg Q4H PRN Administration Anxiety Morphine Sulfate 2 mg 12/19/19 06:58 12/20/19 09:18 Morphine (Carpuject) IVP 2 mg Q1HR PRN Administration PAIN Scopolamine HBr 1 patch 12/19/19 01:00 12/19/19 00:53 Transderm-Scop TOP 1 patch Q3D [facility] Administration Senna 8.6 - 17.2 mg 12/18/19 09:00 12/20/19 09:20 Senokot PO Not Given DAILY [facility] Sodium Chloride 10 ml 12/17/19 13:22 12/19/19 07:55 Normal Saline Flush 0.9% IVP 10 ml PRN PRN Administration NEEDED PER PROVIDER ORDERS Sodium Chloride 10 ml 12/17/19 17:00 12/20/19 09:18 Normal Saline Flush 0.9% IVP 10 ml 0100,0900,1700 [facility] Administration - Lab Result Fish Bone Diagrams: 12/18/19 05:12 12/18/19 20:05 - Additional Planning My Orders: My Active Orders 12/20/19 Hospice Referral [CONS] Routine Subjective - Subjective Nursing Reports: Other (Patient speaks very little, nods in agreement and follows commands, per his RN. He has only taken sips of water and sips of milk.) Objective Vital Signs: Vital Signs - 24 hr 12/19/19 15:57 Temperature 36.2 C L Heart Rate [ 115 H Brachial] Respiratory 16 Rate Blood Pressure 80/52 L [Right Brachial artery] O2 Saturation 96 Oxygen O2 Source Nasal cannula I&O (Last 24 Hrs): Intake and Output Totals x24h 12/18/19 12/19/19 12/20/19 23:59 23:59 23:59 Intake Total 3185 570 Output Total 2100 1755 650 Balance 1085 -1185 -650 General: Other (Cachectic. Somnolent but awakens and moves to commands.) HEENT: Other (Dry oral mucosa, sunken eyes and temporal wasting.) Neuro: Other (Obtunded, weak but repositions independantly in bed.) Cardiovascular: Regular rate Respiratory: No respiratory distress, Other (Poor air movement but no wheezing, rales or rhonchi.) Extremities: Other (muscle wasting.) Skin: No breakdown (Color is icteric/devries.) - Results Results: Laboratory Results WBC 28.3 x10^3/uL (4.8-10.8) H 12/18/19 05:12 RBC 3.15 10^6/uL (4.70-6.10) L 12/18/19 05:12 Hgb 8.3 g/dL (14.0-18.0) L 12/18/19 05:12 Hct 26.0 % (42.0-52.0) L 12/18/19 05:12 MCV 82.5 fL (80.0-94.0) 12/18/19 05:12 MCH 26.3 pg (27.0-31.0) L 12/18/19 05:12 MCHC 31.9 g/dL (32.0-36.0) L 12/18/19 05:12 RDW 16.7 % (12.0-15.0) H 12/18/19 05:12 Plt Count 455 10^3/uL (130-450) H 12/18/19 05:12 MPV 9.4 fL (7.4-11.4) 12/18/19 05:12 Neut # (Auto) 26.4 10^3/uL (1.5-6.6) H 12/18/19 05:12 Lymph # (Auto) 0.3 10^3/uL (1.5-3.5) L 12/18/19 05:12 [place] # (Auto) 1.2 10^3/uL (0.0-1.0) H 12/18/19 05:12 Eos # (Auto) 0.0 10^3/uL (0.0-0.7) 12/18/19 05:12 Baso # (Auto) 0.1 10^3/uL (0.0-0.1) 12/18/19 05:12 Absolute Nucleated RBC 0.00 x10^3/uL 12/18/19 05:12 Nucleated RBC % 0.0 /100WBC 12/18/19 05:12 Manual Slide Review Indicated 12/17/19 13:30 Platelet Estimate INCREASED (>450,000) (NORMAL) 12/17/19 13:30 RBC Morph Micro Appear 3+ ANISOCYTOSIS (NORMAL) 12/17/19 13:30 Sodium 129 mmol/L (135-145) L 12/18/19 20:05 Potassium 5.4 mmol/L (3.5-5.0) H 12/18/19 05:12 Chloride 83 mmol/L (101-111) L 12/18/19 05:12 Carbon Dioxide 24 mmol/L (21-32) 12/18/19 05:12 Anion Gap 17.0 (6-13) H 12/18/19 05:12 BUN 141 mg/dL (6-20) H* 12/18/19 05:12 Creatinine 3.6 mg/dL (0.6-1.2) H 12/18/19 05:12 Estimated GFR (MDRD) 18 (>89) L 12/18/19 05:12 Glucose 109 mg/dL (70-100) H 12/18/19 05:12 Lactic Acid 0.5 mmol/L (0.5-2.2) 12/18/19 14:00 Calcium 8.7 mg/dL (8.5-10.3) 12/18/19 05:12 Total Bilirubin 0.8 mg/dL (0.2-1.0) 12/17/19 13:30 AST 23 IU/L (10-42) 12/17/19 13:30 ALT 24 IU/L (10-60) 12/17/19 13:30 Alkaline Phosphatase 138 IU/L (42-121) H 12/17/19 13:30 Total Creatine Kinase 73 IU/L (22-269) 12/18/19 11:59 Total Protein 8.6 g/dL (6.7-8.2) H 12/17/19 13:30 Albumin 3.4 g/dL (3.2-5.5) 12/17/19 13:30 Globulin 5.2 g/dL (2.1-4.2) H 12/17/19 13:30 Albumin/Globulin Ratio 0.7 (1.0-2.2) L 12/17/19 13:30 Lipase 68 U/L (22-51) H 12/17/19 15:40 Urine Color YELLOW 12/17/19 21:00 Urine Clarity CLOUDY (CLEAR) 12/17/19 21:00 Urine pH 5.0 PH (5.0-7.5) 12/17/19 21:00 Ur Specific [place] 1.025 (1.002-1.030) 12/17/19 21:00 Urine Protein TRACE mg/dL (NEGATIVE) 12/17/19 21:00 Urine Glucose (UA) NEGATIVE mg/dL (NEGATIVE) 12/17/19 21:00 Urine Ketones NEGATIVE mg/dL (NEGATIVE) 12/17/19 21:00 Urine Occult Blood SMALL (NEGATIVE) H 12/17/19 21:00 Urine Nitrite NEGATIVE (NEGATIVE) 12/17/19 21:00 Urine Bilirubin NEGATIVE (NEGATIVE) 12/17/19 21:00 Urine Urobilinogen 0.2 (NORMAL) E.U./dL (NORMAL) 12/17/19 21:00 Ur Leukocyte Esterase SMALL (NEGATIVE) H 12/17/19 21:00 Urine RBC 6-10 /HPF (0-5) H 12/17/19 21:00 Urine WBC >25 /HPF (0-3) H 12/17/19 21:00 Ur Squamous Epith Cells NONE SEEN (<= Few) 12/17/19 21:00 Amorphous Sediment Few /LPF 12/17/19 21:00 Urine Bacteria Many /HPF (None Seen) H 12/17/19 21:00 Urine Culture Comments INDICATED 12/17/19 21:00 Urine Opiates Screen POSITIVE (NEGATIVE) H 12/17/19 21:00 Ur Oxycodone Screen POSITIVE (NEGATIVE) H 12/17/19 21:00 Urine Methadone Screen NEGATIVE (NEGATIVE) 12/17/19 21:00 Ur Propoxyphene Screen NEGATIVE (NEGATIVE) 12/17/19 21:00 Ur Barbiturates Screen NEGATIVE (NEGATIVE) 12/17/19 21:00 Ur Tricyclics Screen NEGATIVE (NEGATIVE) 12/17/19 21:00 Ur Phencyclidine Scrn NEGATIVE (NEGATIVE) 12/17/19 21:00 Ur Amphetamine Screen POSITIVE (NEGATIVE) H 12/17/19 21:00 U Methamphetamines Scrn POSITIVE (NEGATIVE) H 12/17/19 21:00 U Benzodiazepines Scrn NEGATIVE (NEGATIVE) 12/17/19 21:00 Urine Cocaine Screen NEGATIVE (NEGATIVE) 12/17/19 21:00 U Cannabinoids Screen NEGATIVE (NEGATIVE) 12/17/19 21:00 - Procedures Procedures: Procedures COLONOSCOPY (07/31/14) Sepsis Event Note (H) - Evaluation Current Stage of Sepsis: Severe sepsis - Sepsis Criteria Sepsis Criteria: Recorded Heart Rate greater than 90 bpm, WBC count greater than 12,000 or less than 4000, SLASHER RUNNER: altered consciousness (unrelated to primary neuro pathology), MAP less than 65 mmHg
--- NOTE | 2019-12-20 16:22 | CONSULTATION NOTE ---
Palliative Care Consultation - Referral Referring Provider: Regi Stewart MD Time of Visit: [id number] Referral setting: Hospitalized patient Referral Reason: Goals of Care/advanced sarcoma/EOL - Information Sources Records reviewed: Previous records reviewed History/Review of Systems obtained from: Family (met with Kylee ) Exam limitations: Clinical condition (patient lethargic and unable to respond) - History of Present Illness Brief History of Present Illness: This is an unfortunate 54-year-old gentleman who presents with metastatic high- grade sarcoma, who was admitted acutely to [facility] on 12/17/2019. Patient has received chemotherapy, radiation for 4 weeks, has known large pelvic mass, which is diagnosed after several months of symptomology. Patient had severe uncontrolled pain of his spine, he had been originally worked up for BPH. This remains quite a frustration to the family, he did have a laparoscopic diverting descending loop colostomy on 02/04/2019, history also includes biliary o bstruction, with a ERCP on 03/29/2019 where had a percutaneous internal/external biliary drain placed. Most recently was exchanged 09/22/2019. Unfortunately with his restaging scans, his CT scan showed progressive disease as well as his clinical status was markedly declined. He presented with renal failure and hyponatremia last week, and had it oncologist declined hospitalization and received a referral for hospice. Unfortunately patient's functional status declined such that did agree to admit when he no longer was able to ambulate. Patient had not wanted to come into the hospital, she does feel like she betrayed him and sending him in, but he cared for at home in the condition he was in she relented, her friends talked her into sending him in. He was admitted with severe hyponatremia, acute kidney injury, hyperkalemia, and acute metabolic encephalopathy as well as severe sepsis. The decision had been made to attempt to treat reversible conditions, including fluids and addressing hyperkalemia, patient unfortunately though has continued to decline and has been transition to comfort measures. Today he appears fairly close to imminently transitioning to end-of-life, He is able to make eye contact, unable to answer any questions, can nod yes and no but unclear if this is appropriate. He is very thin and cachectic, has not had any food for several days, he had some fl uids yesterday. Palliative care is been asked to meet with regarding end-of-life goals, as well as clarification regarding possible hospice transition. 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 Only occasional use currently) Dependence: Experiences withdrawal or developed tolerances: NONE Tobacco Details: Other (Former smoker) Social History - Living Situation Living arrangement: At home Living Situation: With spouse/s.o. Support System: Patient lives at home with his , they met over 10 years ago. He does have a daughter who is 15, has not seen for several years, they are estranged. Patient was quite vibrant and energetic per before he lost over 54 pounds, had Rosenberg tile and stone, so was very strong. reports patient was very much in to community support, Sharmin his does have a daughter, but she is not able to assist with caregiving. Kimberly is able to identify a girlfriend, who has had some experiencing caregiving and willing to provide some support. has had some experience with dying, her father a few years ago, but has not been on hospice. Patient's has some physical limitations, with concerns regarding ability to provide physical care, she has tapped and called her friends and family, as well as there are limited caregivers available given the [employer] issues. She has been in touch with senior carroll, awaiting further contact from them, she does have another friend who might have been helpful but unfortunately she is quarantined and has limited financial resources at this time to be able to hire further help. Family History - Family History Family History: Mother: Alive and Well (adopted unknown hx), Father: Medications/Allergies - Medications Active Medication List: Active Medications Acetaminophen (Tylenol) 650 mg PO Q4HR PRN PRN Reason: Pain 1 to 4 Carboxymethylcellulose (Refresh 1% Ophth Drops) 1 drops EACHEYE PRN PRN PRN Reason: Dry Eye Haloperidol (Haldol Inj) 1 mg IVP Q2H PRN PRN Reason: See label comments Last Admin: 12/19/19 00:21 Dose: 1 mg Haloperidol (Haldol Oral Soln) 5 mg SL Q30M PRN PRN Reason: See label comments Heparin Sodium (Beef Lung) () 30 - 50 unit IVP Q8HR PRN PRN Reason: PER HEPARIN PROTOCOL Last Admin: 12/19/19 17:58 Dose: 50 unit Lorazepam (Ativan Inj (Vial)) 1 mg IVP Q4H PRN PRN Reason: Anxiety Last Admin: 12/20/19 14:31 Dose: 1 mg Morphine Sulfate (Morphine (Carpuject)) 2 mg IVP Q1HR PRN PRN Reason: PAIN Last Admin: 12/20/19 13:26 Dose: 2 mg Morphine Sulfate (Roxanol) 10 mg PO Q2HR PRN PRN Reason: PAIN Ondansetron HCl (Zofran Inj) 4 mg IVP Q6HR PRN PRN Reason: Nausea / Vomiting Ondansetron HCl (Zofran Odt) 4 mg TL Q6HR PRN PRN Reason: Nausea / Vomiting Oxycodone HCl (Roxicodone) 5 mg PO Q4HR PRN PRN Reason: Pain 5 to 7 Polyethylene Glycol (Miralax) 17 gm PO DAILY PRN PRN Reason: Bowel Protocol Scopolamine HBr (Transderm-Scop) 1 patch TOP Q3D [facility] Last Admin: 12/19/19 00:53 Dose: 1 patch Senna (Senokot) 8.6 - 17.2 mg PO DAILY [facility] Last Admin: 12/20/19 09:20 Dose: Not Given Sodium Chloride (Normal Saline Flush 0.9%) 10 ml IVP PRN PRN PRN Reason: NEEDED PER PROVIDER ORDERS Last Admin: 12/19/19 07:55 Dose: 10 ml Sodium Chloride (Normal Saline Flush 0.9%) 10 ml IVP 0100,0900,1700 [facility] Last Admin: 12/20/19 09:18 Dose: 10 ml Sodium Chloride (Normal Saline Flush 0.9%) 20 ml IVP PRN PRN PRN Reason: After Blood Draw Temazepam (Restoril) 15 - 30 mg PO QPM PRN PRN Reason: Insomnia Morphine Sulfate 60 mg PO BID 03/28/19 Oxycodone HCl [Roxicodone] 15 - 30 mg PO Q3H PRN 03/28/19 Gabapentin 300 mg PO BID 12/17/19 Lipase/Protease/Amylase [Creon Dr 24,000 Units Capsule] 1 cap PO TIDWM 12/17/19 - Allergies Allergies/Adverse Reactions: Allergies Allergy/AdvReac Type Severity Reaction Status Date / Time No Known Drug Allergies Allergy Verified 12/17/19 11:28 Review of Systems - Constitutional Constitutional: reports: Fatigue, Weight loss - Ears, Nose & Throat Ears, Nose & Throat: reports: Dry mouth - Respiratory Respiratory: reports: Other (oxygen on 3 liters;) - Gastrointestinal Gastrointestinal: reports: Other (colostomy-had movement yesterday) - Genitourinary Genitourinary: reports: Other (has julian catheter; postive UTI/sepsis) - Musculoskeletal Musculoskeletal: reports: Stiffness, Limited range of motion, Muscle weakness, Other (has been bedbound) - Integumentary Integumentary: reports: Dryness - Neurological Neurological: reports: General weakness - Psychiatric Psychiatric: reports: Anxiety, Aggitation (responds to lorazepam) - Hematologic/Lymphatic Hematologic/Lymphatic: reports: Blood clots - All Other Systems All Other Systems: reports: Other (limited ROS) Physical Exam - Vital Signs Vital Signs: Vital Signs x48h Pulse Pulse Ox 12/20/19 14:09 119 H 91 L 12/20/19 14:00 91 L - Physical Exam General Appearance: positive: Mild distress, Lethargic, Cachetic, Other (RN medicated with MS with good response) Eyes Bilateral: positive: Other (eyes sunken;) ENT: positive: Dry mucous membranes Neck: positive: Trachea midline Cardiovascular: positive: Tachycardia Respiratory: positive: No respiratory distress Abdomen: positive: Other (concave) Skin: positive: Dryness Extremities: positive: No pedal edema Neurologic/Psychiatric: positive: Weakness, Unintelligible speech Palliative Care - POLST Patient has POLST: Yes POLST Status: DNR Pain: Comment (Patient's baseline pain had been managed on large doses of morphine and oxycodone, 60 mg every 12 hours and oxy 15 every 3 hours. Patient has been managed on small doses of IV morphine over the last 24 hours, has denied pain for the most part to nursing, would benefit from more regular [id number] dosing.) Tiredness/Fatigue: Severe (7-10) Drowsiness/Sedation: Severe (7-10) - Palliative Care Discussion: Met with Sharmin, spent time just dissecting the story, has been fairly rapid decline. They did meet with the oncologist on , and was told the re was no further treatment, had recommended acute hospitalization versus hospice. Patient had said at that point in time "I do not want to ". Kimberly is wondering if he just gave up, He has had rapid both functional and cognitive decline over the last several days and more acutely over the last several hours. He had been taking in fluids yesterday, and able to talk in small sentences. We discussed some of the concerns regarding transitioning home, she has been diligent about trying to find some support, it is quite limited given her finances, her social community, as well as what is available given the Covid19 outbreak. Counseling provided regarding her concerns and what hospice could and could not provide. We did discuss in the context is not eating or drinking, there would be very little output in his colostomy, that I suspect probably with hours to days left, this would not be much of an issue. The player services representative can change to the colostomy bag if needed. It would be just the emptying which would be most likely not an issue. He does not have a Julian catheter, she does perceive the diapers are unnecessary given his colostomy and Julian, and somewhat and dignified. We discussed given the expected ongoing changes, that this would be fairly quick within hours to days if he were to transition home. Call to hospice, they do not have an opening till a.m., in the context that she really would like to meet his wishes which is to be at home, we decided in shared decision making, to move forward recognizing patient may not be able to meet his wish. She does feel better though being able to tell him they are working on it. She was able to identify a friend to [place] help her for short periods, and getting support hospice can provide, explaination of medication management, and patients rapid decline she would like to move forward. She does understand the seriousness of his illness, that he is imminently dying, and actually would like for him to have no further suffering and hopes it is quick and not drawn out. 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 Patient has transition to comfort measures, in the context of goals of care, will move forward with hospice planning but recognize patient is most likely hours to days and can reevaluate as we go along. Recommendations/Counseling Done: 1. Pain of neoplastic origin. Patient currently being managed with small doses of MS and Lorazepam, would recommend nursing staff evaluate on a regular basis and provide more consistent [id number] dosing. has been advocating and watching for signs or symptoms of discomfort and/or agitation. Reviewed pharmacokinetics, medication only usually last 3 to 6 hours at the most, in the context of not wanting to prolong his suffering and experiencing unnessary pain given his previous opioid dosing, needs to be medicated more regularly. Counselkm posada provided regarding relief of suffering, if patient does have extended dying process, would recommend to transition to oral Roxanol in preparation for transition home, timing may be later to tomorrow/afternoon for this transition to evaluate effectiveness and teach how to use. 2. Advanced care planning. Family meeting with counseling provided regarding anticipatory guidance, the continuum of care regarding hospice benefit what they can and cannot provide, goals of care and psychosocial support for . Unfortunately given the constraints of the current hospice team, at this point do not have an opening tomorrow evening, but do have 1 a.m. If things change they will notify hospital team Discussed also planning, given financial constraints, will have TRIM INSTALLER meet with to sign up for [facility]. They do want cremation, discussed do need home either here at hospital or at home at time of . She is able to verbalize understanding of patient's imminent decline, most likely hours to days, she is quite pleased though to be able to tell him they are planning to take him home. This is relieved a significant burden for her. Time Spent: 75 minutes with greater than 50% of this done in counseling regarding continuum of care of hospice, goals of care, coordination of care with hospitalist team and TRIM INSTALLER. Plan to follow-up in a.m., and evaluate patient's condition, if patient actively dying would not be appropriate to transition home.
[2019-12-20] MEDS: SODIUM CHLORIDE FLUSH 0.9% 10 ML SYRINGE IVP PRN ×2 (18:26→21:37)
[2019-12-21] MEDS: MORPHINE 2 MG/ML CARPUJECT IVP PRN ×4 (01:00→08:57)
[2019-12-21] MEDS: SODIUM CHLORIDE FLUSH 0.9% 10 ML SYRINGE IVP SCH ×3 (01:06→16:13)
[2019-12-21] MEDS: LORazepam 2 MG/ML VIAL IVP PRN ×4 (02:35→16:12)
[2019-12-21] MEDS: SENNA 8.6 MG TABLET PO SCH (09:38)
[2019-12-21] MEDS ORDERED: oxyCODONE 10 MG/0.5 ML SYRINGE PO PRN (10:08)
[2019-12-21] MEDS ORDERED: fentaNYL 25 MCG PATCH TOP SCH (10:30)
--- NOTE | 2019-12-21 12:31 | Discharge Plan ---
Discharge Plan Problem Reviewed?: Yes Disposition: Home, Self Care Condition: Poor Prescriptions: Ondansetron Odt [Zofran Odt] 4 mg TL Q6HR PRN #10 tablet PRN Reason: Nausea / Vomiting Haloperidol Oral Soln [Haldol Oral Soln] 5 mg SL Q30M PRN #20 udc PRN Reason: See label comments Morphine Sulfate [Morphine Sulf Oral (Roxanol)] 10 mg PO Q1H PRN #30 ml PRN Reason: Pain/Dyspnea Scopolamine 1 each TD Q3D #7 patch.td.3 Health Concerns: Admitted for treating lab abnormalities, and pain and weakness related to metastatic cancer. The patient was transitioned to Comfort Care. He will be under Hospice Care soon. Plan of Treatment: Comfort Care measures and transition pending to Hospice Care, under [employer] Dyeing Machine Tender, Dr Hai Chester. Care Goals: As above. All new medications were electronically ordered to your [place] pharmacy. Assessment: The Hospice GUNNER'S MATE, Emelia Davis, helped the with the above. No Smoking: If you smoke, Please STOP! Call for help. Follow-up with: Hai Chester MD [Provider Admit Priv/Credential] -
--- NOTE | 2019-12-21 12:49 | DISCHARGE SUMMARY ---
Discharge Summary Admit Date: 12/17/19 Discharge Date: 12/21/19 Discharging Provider: Dr Sharon Stewart Primary Care Provider: Josse Conti Code Status: Do Not Attempt Resuscitation Condition at Discharge: Poor Discharge Disposition: 01 Home, Self Care - DIAGNOSES Admission Diagnoses: (1) Metastatic sarcoma (2) Pelvic mass in male (3) Cancer-related pain (4) Hyponatremia (5) Bile duct obstruction (6) Acute kidney injury (7) Increased anion gap metabolic acidosis (8) Malignant cachexia (9) Hyperkalemia (10) Pancreatic mass (11) Lumbar radiculopathy (12) History of alcoholism - HPI History of Present Illness: From the admission H&P of Dr Grace Sesay: 54 year old male with pelvic mass metastatic to pancreas and lungs status post chemotherapy and radiation, colostomy, and cholecystostomy tube at [facility] presents to ED with few days of progressive and acute generalized weakness, falls, and worsened anorexia. Pt had labs drawn last week and was told he had low sodium and high potassium. He reports constant and uncontrolled pain "everywhere." reports pt has been mildly confused and so weak in his arms and legs with falls at home recently. Pt was able to ambulate independently about 5 days sago. Denies any recent N/V, fevers, cough, significant changes in urination, or SOB. Pt has gotten nauseous if cholecystostomy gets clogged but this hasn't happened recently. Patient and have been told there are no further treatment options for his cancer, and reports that she has an upcoming appointment to discuss hospice information with an RN on Thursday. He has lost 50 pounds since October 2018. requesting that patient be treated for his low sodium and high potassium. She reports advanced directives has already been filled out: DNR/DNI, selective treatment, no artiifical nutrition. She will bring a copy of this in. Initial labs signifcant for Na 122, K 5.9, BUN 152, Cr 4.8, Alk Phos 138. WBC 25,4000, Hb 9.8, and Plt 521. Initial vital signs stable except for mildly elevated HR 105. - CONSULTS | PROCEDURES Consultations: Emelia Davis NP - HOSPITAL COURSE Hospital Course: (1) Hyponatremia Severe with admit Na 122, which worsened to 120 so normal saline was increased. Minimally improved 3/22 to 124. Suspect due to hypovolemia due to decreased PO intake. Suspect contributing to generalized weakness and acute encephalopathy (2) Acute kidney injury Admit Cr 4.8. Suspect due to hypovolemia from minimal PO intake. Improved slightly to Cr 1.5 on 12/07/2019. His baseline Cr was 0.7 in Jun 2019 on chart review. Stable left hydronephrosis seen on CT AP compared to prior CT scan. (3) Hyperkalemia Due to LOLA. Admit K 5.9, improved post kayexalate 30gm on 12/16. Repeat kayexalate 15gm today with Senna and Miralax and hydration improved renal function. (4) Increased anion gap metabolic acidosis Suspect due to LOLA. UA negative for ketones, lactate normal. Improved on labs. (5) Acute metabolic encephalopathy reports mild confusion prior to admission. Intermittently agitated here. Suspect multifactorial due to hyponatremia, hyperkalemia, UTI, uremia, and presumed recent meth use (His urine tox screen was + for meth). he was ordered to get IV Haldol and IV Ativan PRN and treatment of underlying causes with IVF and IV antibiotics. (6) Severe sepsis Severe as associated with LOLA, hypotension, and acute encephalopathy. Sepsis (leukocytosis, bandemia, tachycardia) due to UTI. He was started on empiric iv ceftriaxone. Per discussion with , her eventual priority is his comfort but she wanted to pursue selective treatment for 24-48 hours to see if significant improvementis seen in his generalized weakness and mental status. (7) Urinary tract infection Present on admission. Higher risk as pt with chronic urinary retention and self catheterizes at home. (8) Metastatic sarcoma Status post chemotherapy and radiation. No further treatment options per 's report. Hospice had been recommended by PCP and/or oncologist. The pt and were open to idea of transitioning to comfort care. When he started to acutely complain of pain, the [employer] had a discussion with them and the patient wanted to be changed to Comfort Care and all iv treatment, blood draws and vital sign checks wer stopped. (9) Pelvic mass in male As in #8 (10) Cancer-related pain Significant and persistent despite PO home opiate regimen per pt and report, which were MS Contin q8, PRN oxycodone, and gabapentin. We added IV Dilaudid PRN, then oral Roxanol liquid and a Fentanyl patch. (11) Methamphetamine abuse Urine drug screen was + for methamphetamine. 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 (13) Cholecystostomy for bile duct obstruction Status post an ostomy. Suspect due pancreatic head metastatic lesion (14) Pancreatic mass Metastatic disease of pancreas. This was demonstrated on CT AP without contrast (15) Urinary retention Chronic as the pt self catheterizes at home. Suspect due to mechanical obstruction from pelvic mass (16) Lumbar radiculopathy Suspect related to mechanical compression from large pelvic mass. His home Gabapentin was continued. (17) History of alcoholism Noted. Only occasional use for at least 6 months per (18) Comfort measures only status On his last 2 days here, he was Comfort Care status. A Hospice referral had been placed, and Emelia Davis NP stepped in and saw the patient and met with the , in place of Dr. Chester (who was on quarantine), and the patient was accepted by Hospice. He was discharged home when equipment arrived and was to be on Hospice service the next day, for End Of Life Care. - ALLERGIES Allergies/Adverse Reactions: Allergies Allergy/AdvReac Type Severity Reaction Status Date / Time No Known Drug Allergies Allergy Verified 12/17/19 11:28 - MEDICATIONS Home Medications: Ambulatory Orders Medication Instructions Recorded Confirmed Haloperidol Oral Soln [Haldol Oral 5 mg SL Q30M PRN #20 udc 12/21/19 Soln] Morphine Sulfate [Morphine Sulf 10 mg PO Q1H PRN #30 ml 12/21/19 Oral (Roxanol)] Ondansetron Odt [Zofran Odt] 4 mg TL Q6HR PRN #10 tablet 12/21/19 Scopolamine 1 each TD Q3D #7 patch.td.3 12/21/19 - PHYSICAL EXAM AT DISCHARGE General Appearance: positive: Lethargic, Other (Severely thin and cachectic.) Eyes Bilateral: positive: Other (Severe temporal wasting and sunken eyes) ENT: positive: Dry mucous membranes, Other (Dry mucosa, skin of face dark and leathery) Neck: positive: Other (Cachexia) Respiratory: positive: No respiratory distress, Other (wearing O2 by n.c.) Cardiovascular: positive: Regular rate & rhythm Abdomen: positive: Other (Ostomy present) Skin: positive: Dry, Other (Dark discoloration diffusely) Extremities: positive: No pedal edema, Other (Diffuse muscle wasting) Neurologic/Psychiatric: positive: Weakness, Other (Lethargic, moves all extremities and follows commands) - LABS Result Diagrams: 12/18/19 05:12 12/18/19 20:05 - FOLLOW UP Follow Up: Hospice Care to accept patient in 24 hours for End of Life care. - TIME SPENT Time Spent in Discharge (Minutes): 30
--- NOTE | 2019-12-21 14:47 | CONSULTATION NOTE ---
Palliative Care Follow Up - Referral Referring Provider: Sharon Stewart MD Time of Visit: 914-9:45 Referral setting: Hospitalized patient Referral Reason: Comfort Care/Sarcoma - Information Sources Records reviewed: Previous records reviewed History/Review of Systems obtained from: Family ( Kylee at bedside) Exam limitations: Clinical condition (patient nonverbal; unable to participate) - History of Present Illness Update Brief HPI Update: Please see HPI 12/19. Patient had a restless night, he does appear somewhat uncomfortable, is able to open his eyes, does follow directions somewhat. He has had some agitation, and has needed frequent every 3-4 hour dosing of morphine supplemented with Lorazepam. His 's perception, as well as noted pain behaviors does appear to be an undermedicated at this point in time. Patient's baseline pain medications are MS Contin 60 mg twice daily with OxyContin 30 mg for breakthrough. He has had fluctuating pain but most recently has been escalating. Patient still responsive, at this point in time still within hours to days, but will proceed with hospice referral and alignment with patient goals. is feeling more settled, equipment to be delivered this afternoon, is aware will not discharge if patient imminently transitioning. She continues to be at the bedside, expressing appropriate grief and loss, she does have 1 friend who she identifies as good support who will be receiving the equipment. Social History - Living Situation Living arrangement: At home Living Situation: With spouse/s.o. Support System: Patient and has been together over 10 years, though they only last year. 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, but prior to that was very vibrant.This is felt very quick, and a very rapid decline and difficult journey over this last year for the both Medications/Allergies - Medications Active Medication List: Active Medications Acetaminophen (Tylenol) 650 mg PO Q4HR PRN PRN Reason: Pain 1 to 4 Carboxymethylcellulose (Refresh 1% Ophth Drops) 1 drops EACHEYE PRN PRN PRN Reason: Dry Eye Fentanyl (Duragesic) 1 patch TOP Q3D@0900 [facility] Last Admin: 12/21/19 10:45 Dose: 1 patch Haloperidol (Haldol Inj) 1 mg IVP Q2H PRN PRN Reason: See label comments Last Admin: 12/19/19 00:21 Dose: 1 mg Haloperidol (Haldol Oral Soln) 5 mg SL Q30M PRN PRN Reason: See label comments Heparin Sodium (Beef Lung) () 30 - 50 unit IVP Q8HR PRN PRN Reason: PER HEPARIN PROTOCOL Last Admin: 12/20/19 16:20 Dose: 50 unit Lorazepam (Ativan Inj (Vial)) 1 mg IVP Q4H PRN PRN Reason: Anxiety Last Admin: 12/21/19 10:45 Dose: 1 mg Morphine Sulfate (Morphine (Carpuject)) 2 mg IVP Q1HR PRN PRN Reason: PAIN Last Admin: 12/21/19 08:57 Dose: 2 mg Morphine Sulfate (Roxanol) 10 mg PO Q2HR PRN PRN Reason: PAIN Last Admin: 12/21/19 12:43 Dose: 10 mg Ondansetron HCl (Zofran Inj) 4 mg IVP Q6HR PRN PRN Reason: Nausea / Vomiting Ondansetron HCl (Zofran Odt) 4 mg TL Q6HR PRN PRN Reason: Nausea / Vomiting Oxycodone HCl (Roxicodone Oral Soln) 10 mg PO Q4HR PRN PRN Reason: PAIN Polyethylene Glycol (Miralax) 17 gm PO DAILY PRN PRN Reason: Bowel Protocol Scopolamine HBr (Transderm-Scop) 1 patch TOP Q3D [facility] Last Admin: 12/19/19 00:53 Dose: 1 patch Senna (Senokot) 8.6 - 17.2 mg PO DAILY [facility] Last Admin: 12/21/19 09:38 Dose: Not Given Sodium Chloride (Normal Saline Flush 0.9%) 10 ml IVP PRN PRN PRN Reason: NEEDED PER PROVIDER ORDERS Last Admin: 12/20/19 21:37 Dose: 10 ml Sodium Chloride (Normal Saline Flush 0.9%) 10 ml IVP 0100,0900,1700 [facility] Last Admin: 12/21/19 10:45 Dose: 10 ml Sodium Chloride (Normal Saline Flush 0.9%) 20 ml IVP PRN PRN PRN Reason: After Blood Draw Last Admin: 12/21/19 06:06 Dose: 20 ml Temazepam (Restoril) 15 - 30 mg PO QPM PRN PRN Reason: Insomnia - Allergies Allergies/Adverse Reactions: Allergies Allergy/AdvReac Type Severity Reaction Status Date / Time No Known Drug Allergies Allergy Verified 12/17/19 11:28 Review of Systems - Constitutional Constitutional: reports: Weight loss - Ears, Nose & Throat Ears, Nose & Throat: reports: Dry mouth - Respiratory Respiratory: reports: Other (no wearing oxygen currently, oxygen sats fine) - Gastrointestinal Gastrointestinal: reports: Other (no intake for greater than 24 hours) - Genitourinary Genitourinary: reports: Other (has julian catheter) - Musculoskeletal Musculoskeletal: reports: Muscle weakness - Integumentary Integumentary: reports: Dryness - Neurological Neurological: reports: General weakness, Other (nonverbal) - Psychiatric Psychiatric: reports: Aggitation - All Other Systems All Other Systems: reports: Other (limited ROS) Physical Exam - Vital Signs Vital Signs: Vital Signs x48h Pulse Resp BP Pulse Ox 12/21/19 09:31 116 H 16 81/55 L 95 - Physical Exam General Appearance: positive: Mild distress, Cachetic Eyes Bilateral: positive: Other (sunken) ENT: positive: Dry mucous membranes Cardiovascular: positive: Tachycardia Respiratory: positive: No respiratory distress Skin: positive: Dryness Extremities: positive: No pedal edema Neurologic/Psychiatric: positive: Other (nonverbal; lethargic; restless movements in bed with furrowed brow) Palliative Care - POLST Patient has POLST: Yes POLST Status: DNR, Comfort Measures Pain: Pain worsening, Comment (unable to ask; has been spine and pelvis in past; restless behaviors, grimacing with movement) Performance Status: Bedbound will need BLS transport - Palliative Care Discussion: We discussed patient still awake alert at times, drifts off pretty easily. Is needing more medication to be comfortable. She is feeling less anxious, she is unclear if he is going to understand he is going home, but is feeling like we should go ahead and move forward. Psychosocial support given and review again of information from yesterday. 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 Patient is currently on comfort measures, presents with uncontrolled pain, in the context of goals will continue move forward with hospice planning but recognize patient is most likely hours to days and can reevaluate in the morning before discharge. Recommendations/Counseling Done: 1. Pain of neoplastic origin. Patient is demonstrating increased pain behaviors, needing more frequent IV MS. Recommendation of follow-up with hospitalist for initiation of fentanyl 25 mcg patch=50 mg MS oral equivalent; still less than equivalent previously on. Would recommend switching to oral Roxanol to trial effectiveness of 10 mg every 2 hours as needed for breakthrough pain. After application of the fentanyl patch takes 8 to 10 hours to be at therapeutic level, will need continued PRN dosing, on a regular basis until that time. 2. Agitation. Patient may also be experiencing pain adding to his level of agitation, as well as transitioning with terminal restlessness. Patient does respond to Lorazepam, will continue on a regular basis. 3. Advanced care planning. At this point time goal is still to try and transition home, for meeting goal of at home. Equipment to be delivered this afternoon, BLS transfer plan, will reevaluate first thing in the morning for transition home in the context of where patient is in the trajectory of his dying process Time Spent: 30 minutes with greater than 50% of this done in counseling and support for transition for end-of-life care, coordination of care for hospice transition.Will need comfort medications sent ahead of time, to picking tech prior to discharge to have available at home after BLS transfer.
[2019-12-21 16:11] VITALS: BP 87/65
== END 2019-12-21 16:15 | disposition home or self-care (01) | DRG 682 ==
LOC: EDUNIT# → ED 11:14 → MS2 13:22
PROVIDERS: ADMIT Internal Medicine; ATTEND Internal Medicine
DX: N17.9 Acute kidney failure, unspecified (principal); G93.41 Metabolic encephalopathy; A41.9 Sepsis, unspecified organism; R65.20 Severe sepsis without septic shock; K83.1 Obstruction of bile duct; E87.1 Hypo-osmolality and hyponatremia; N30.01 Acute cystitis with hematuria; C49.9 Malignant neoplasm of connective and soft tissue, unspecified; C78.00 Secondary malignant neoplasm of unspecified lung; C78.89 Secondary malignant neoplasm of other digestive organs; R64 Cachexia; Z68.1 Body mass index [BMI] 19.9 or less, adult; I42.7 Cardiomyopathy due to drug and external agent; E87.2 Acidosis; N13.30 Unspecified hydronephrosis; G89.3 Neoplasm related pain (acute) (chronic); C76.3 Malignant neoplasm of pelvis; E87.5 Hyperkalemia; E86.0 Dehydration; R33.9 Retention of urine, unspecified; F15.10 Other stimulant abuse, uncomplicated; M54.16 Radiculopathy, lumbar region; R63.0 Anorexia; F10.21 Alcohol dependence, in remission; T45.1X5D Adverse effect of antineoplastic and immunosuppressive drugs, subsequent encounter; R45.1 Restlessness and agitation; R53.83 Other fatigue; Z51.5 Encounter for palliative care; Z66 Do not resuscitate; Z93.4 Other artificial openings of gastrointestinal tract status; Z93.3 Colostomy status; Z91.81 History of falling; Z87.891 Personal history of nicotine dependence; Z92.21 Personal history of antineoplastic chemotherapy; Z92.3 Personal history of irradiation
CPT/HCPCS: 36415; 74176; 80048; 80053; 80306; 81001; 82550; 83605; 83690; 84295; 85025; 87077; 87086; 87181; 99223; 99232; 99283; 99285; A9270; J1170; J2060; J3490; J8499

== ENCOUNTER 2019-12-21 16:25 | Outpatient (CLI) | payer MEDICAID | END 2019-12-21 16:26 | disposition home or self-care (01) | LOC: EMS 16:25 | PROVIDERS: ATTEND Surgery | DX: R53.1 Weakness (principal); R52 Pain, unspecified; C49.9 Malignant neoplasm of connective and soft tissue, unspecified | CPT/HCPCS: A0425; A0428 ==